=== PATIENT | male | born 1955 | race Caucasian/White ===

== ENCOUNTER 2025-05-16 09:08 | Inpatient (IN) ==
--- NOTE | 2025-04-08 10:34 | PAT Medication Instructions ---
Medication Instructions Date of Service April 08, 2025 Home Medications Medication Instructions Recorded diclofenac sodium 1 % topical gel 2 g topical QID PRN pain, moderate 12/25/24 #100 grams clopidogrel 75 mg tablet 75 mg PO DAILY #90 tabs 02/03/25 divalproex 125 mg capsule,delayed 125 mg PO BID 30 days #60 caps 02/26/25 release sprinkle ergocalciferol (vitamin D2) 1,250 1,250 mcg PO .WEEKLY #12 caps 03/04/25 mcg (50,000 unit) capsule ferrous gluconate 324 mg (37.5 mg 324 mg PO .COMPLEX #30 tabs 03/21/25 iron) tablet pantoprazole 40 mg tablet,delayed See Rx Instructions .Route 04/07/25 release .COMPLEX #90 tabs amitriptyline 100 mg tablet 100 mg PO HS atorvastatin 80 mg tablet 80 mg PO QAM calcium carbonate (Tums) 300 mg PO BID PRN diclofenac sodium 1 % topical gel 2 g topical QID PRN mirtazapine 15 mg tablet 15 mg PO HS [id number] 300 mcg-K 60 mcg-lycop 600 mcg-lutein 300 mcg tablet (Men 50 Plus Multivitamin) 1 tab PO DAILY valsartan 160 mg tablet 160 mg PO QAM vitamin B comp and C no.3 15 mg-10 mg-50 mg-5 mg-300 mg capsule (B Complex Plus Vitamin C) 1 cap PO DAILY clopidogrel 75 mg tablet 75 mg PO DAILY divalproex 125 mg capsule,delayed release sprinkle 125 mg PO BID ergocalciferol (vitamin D2) 1,250 mcg (50,000 unit) capsule 1,250 mcg PO .WEEKLY ferrous gluconate 324 mg (37.5 mg iron) tablet 324 mg PO .COMPLEX aspirin 81 mg capsule 81 mg PO DAILY pantoprazole 40 mg tablet,delayed release See Rx Instructions .Route .COMPLEX Continue as directed pantoprazole 40 mg tablet,delayed release See Rx Instructions .Route .COMPLEX ASK your prescriber and surgeon clopidogrel 75 mg tablet 75 mg PO DAILY aspirin 81 mg capsule 81 mg PO DAILY STOP taking 24 hours before surgery diclofenac sodium 1 % topical gel 2 g topical QID PRN DO NOT take the morning of surgery calcium carbonate (Tums) 300 mg PO BID PRN valsartan 160 mg tablet 160 mg PO QAM vitamin B comp and C no.3 15 mg-10 mg-50 mg-5 mg-300 mg capsule (B Complex Plus Vitamin C) 1 cap PO DAILY [id number] 300 mcg-K 60 mcg-lycop 600 mcg-lutein 300 mcg tablet (Men 50 Plus Multivitamin) 1 tab PO DAILY ergocalciferol (vitamin D2) 1,250 mcg (50,000 unit) capsule 1,250 mcg PO .WEEKLY ferrous gluconate 324 mg (37.5 mg iron) tablet 324 mg PO .COMPLEX Take morning of surgery With a small sip of water, OTHERWISE NOTHING TO EAT OR DRINK AFTER MIDNIGHT: atorvastatin 80 mg tablet 80 mg PO QAM divalproex 125 mg capsule,delayed release sprinkle 125 mg PO BID Take evening before surgery amitriptyline 100 mg tablet 100 mg PO HS calcium carbonate (Tums) 300 mg PO BID PRN(if needed) mirtazapine 15 mg tablet 15 mg PO HS divalproex 125 mg capsule,delayed release sprinkle 125 mg PO BID Other Notes If you have any questions please call us at [phone] or [phone] or [phone] or [phone]
--- NOTE | 2025-04-15 13:56 | Anesthesiology Consultation ---
Date of Service April 15, 2025 Assessment & Plan (1) Encounter for pre-operative examination: - Infectious disease screening: Per assessment on 04/15/25- No known recent infectious disease contacts or current infectious disease symptoms. - Outpatient joint assessment: Pt currently scheduled for inpatient pathway. If surgeon requests review for outpatient joint pathway, patient is not recommended candidate for outpatient joint program from anesthesia standpoint based on available information. - Plavix/ASA instructions: per surgeon/prescriber - Neurology visit (03/13/25): "s/p CVA 2018 with left hemiparesis.. currently is getting PT.. OT, speech therapy was requested.. cont current regimen of HTN control, statin and plavix" - Cardiology workload note (04/15/25): "Continue Aspirin 81 mg daily. May hold Plavix x 7 days leading up to shoulder surgery." - Pending: * Workload message sent to cardiology regarding upcoming surgery- Awaiting upcoming cardio visit ([facility] [place], [place]). * Awaiting upcoming PCP visit ([facility] [place], appt 04/25). Chart Review Chart Review: Patient seen in Pre Admission Testing Teaching & Discussion Pre-Anesthesia Teaching/Discussion Notes: Instructed NPO after midnight before surgery,except medications with 15 cc of water. Medication instructions provided according to the PAT guidelines. History Surgery Operation Date: 05/16/25 09:00 Proposed Procedures p Right Reverse Total Shoulder Arthroplasty - Chris Juárez, Height/Weight Height: 5 ft 6 in Weight: 66.5 kg Allergies Allergy/AdvReac Type Severity Reaction Status Date / Time No Known Allergies Allergy Verified 03/13/25 13:07 Medications Home Medications Medication Instructions Recorded Confirmed Last Taken amitriptyline 100 mg tablet 100 mg PO HS 12/25/24 04/07/25 Unknown atorvastatin 80 mg tablet 80 mg PO QAM 12/25/24 04/07/25 Unknown calcium carbonate (Tums) 300 mg PO BID PRN heart burn 12/25/24 04/07/25 Unknown diclofenac sodium 1 % topical gel 2 g topical QID PRN pain, moderate 12/25/24 04/07/25 Unknown #100 grams mirtazapine 15 mg tablet 15 mg PO HS 12/25/24 04/07/25 Unknown [id number] 300 mcg-K 60 1 tab PO DAILY 12/25/24 04/07/25 Unknown mcg-lycop 600 mcg-lutein 300 mcg tablet (Men 50 Plus Multivitamin) valsartan 160 mg tablet 160 mg PO QAM 12/25/24 04/07/25 Unknown vitamin B comp and C no.3 15 mg-10 1 cap PO DAILY 12/25/24 04/07/25 Unknown mg-50 mg-5 mg-300 mg capsule (B Complex Plus Vitamin C) clopidogrel 75 mg tablet 75 mg PO DAILY #90 tabs 02/03/25 04/07/25 Unknown divalproex 125 mg capsule,delayed 125 mg PO BID 30 days #60 caps 02/26/25 04/07/25 Unknown release sprinkle ergocalciferol (vitamin D2) 1,250 1,250 mcg PO .WEEKLY #12 caps 03/04/25 04/07/25 Unknown mcg (50,000 unit) capsule ferrous gluconate 324 mg (37.5 mg 324 mg PO .COMPLEX #30 tabs 03/21/25 04/07/25 Unknown iron) tablet aspirin 81 mg capsule 81 mg PO DAILY 04/07/25 04/07/25 Unknown pantoprazole 40 mg tablet,delayed See Rx Instructions .Route 04/07/25 04/07/25 Unknown release .COMPLEX #90 tabs Past Medical History Medical History (Updated 04/15/25 @ 15:15 by Maria G Gonzalez) Anemia Chronic Atherogenic dyslipidemia CAD (coronary artery disease) s/p cardiac stents: 2012 (JHOAN to right posterolateral branch) + 2017 (JHOAN to RCA > staged PCI Cx) Chronic lymphocytic leukemia Follows with heme/onc (CCP) Cognitive deficit following cerebrovascular accident (CVA) Dysphagia Chronic, ongoing issue since 2018 CVA Difficulty w/large food Follows with speech therapy GERD (gastroesophageal reflux disease) History of atrial fibrillation Follows with [facility] [place] cardio History of CVA (cerebrovascular accident) 2018 (per cardio records) > left sided hemiparesis affecting left side, uses wheel chair Taking Plavix Follows with [facility] [place] neurology HTN (hypertension) Hx of myocardial infarction Multiple MIs (most recent 2016) Left hemiplegia Exercise / Class Metabolic Activity IV < 2 Limit ADL/Bedbound (Electric wheelchair use) Past Family History Family History Mother Colorectal cancer Diabetes Brother No problems noted. Denies family history of Ovarian cancer Prostate cancer Myocardial infarction Breast cancer Lung cancer Past Surgical History Surgical History History of right hip replacement Hx of cardiac catheterization 2012 (JHOAN to right posterolateral branch) + 2016 (JHOAN to RCA > staged PCI Cx) Hx of colonoscopy Implantable loop recorder present Placed for a. fib, "non-fuctioning" S/P vasectomy S/P wisdom tooth extraction Past Anesthesia History No Hx of Anesthesia Complications and No Family Hx of Anesthesia Complications History of PONV No Hx of PONV and No Hx of Motion Sickness Social History Smoking Status: Former smoker Do You Dip or Chew Tobacco: No Smoking End Date: Quit ~20 years ago Hx Alcohol Use: Yes Alcohol type: wine alcohol intake frequency: holidays/special occasions only Hx Substance Use: No substance use type: does not use Review of Systems Patient denies chest pain, shortness of breath, fever, chills, cough, wheezing, palpitations. Physical Exam Vital Signs BP 109/73 P 91 TEMP 98.5 SP02 95%RA RESP 16 Physical Full cervical extension range of motion. Full TMJ range of motion. TMD > 3.5 finger breaths Mallampati Score II Dentition: upper full dentures Lungs: clear throughout to auscultation Cardiac: regular rate and rhythm, no murmurs noted Spine: normal Carotid arteries: negative bruit Extremities: no LE edema Lab Results Anesthesia Preop Results Results Anesthesia Widget: WBC 13.21 K/ul (4.8-10.8) H 04/15/25 Hgb 11.5 g/dl (14.0-18.0) L 04/15/25 Hct 36.6 % (42.0-52.0) L 04/15/25 Plt 256 K/uL (130-400) 04/15/25 Na 141 mmol/L (136-145) 04/15/25 K 4.0 mmol/L (3.5-5.1) 04/15/25 Cl 105 mmol/L (98-107) 04/15/25 CO2 29 mmol/L (21-32) 04/15/25 BUN 14 mg/dl (6-23) 04/15/25 Creat 1.02 mg/dl (0.6-1.4) 04/15/25 Glucose Level 110 mg/dl (70-99(Fasting)) H 04/15/25 PT 10.5 Seconds (9.0-12.0) 04/15/25 PTT 27 Seconds (21-31) 04/15/25 INR 1.0 (0.9-1.1) 04/15/25 Blood Type O Positive 04/15/25 Antibody Screen NEGATIVE 04/15/25 Testing Laboratory Results *Known hx of CLL- Elevated WBC on preop labs (stable)* Electrocardiogram Date: 01/14/25 Sinus rhythm with sinus arrhythmia at 77 bpm. First-degree AV block. LVH with QRS widening (R in aVL, Tom product, Romhilt-Early). Inferior infarct, age undetermined. Inferior infarct dating back to 02/04/2019 per scanned 10/03/23 ECG tracing tracings scanned into chart. Chest X-Ray Date: 04/15/25 FINDINGS: An electronic device projects over the anterior left chest wall. Coronary arterial stenting. Cardiomegaly. Mild chronic interstitial coarsening. Atherosclerosis of the aorta. No pneumothorax, large pleural effusion, airspace consolidation or overt pulmonary edema. Degenerative changes of the shoulders and spine. IMPRESSION: No acute process. Echocardiogram Date: 10/05/23 EF 35-40%. Severe hypokinesis of mid anterior septal wall. Moderate LVH. Mild MR/AR. Stress Test Date: 10/07/23 Type: nuclear Stress ECG response: Nonspecific STT abnormalities. No evidence of stressinduced ischemia.
--- NOTE | 2025-05-14 12:39 | History & Physical Report ---
Date of Service May 14, 2025 Assessment & Plan (1) Rotator cuff tear arthropathy of right shoulder: We will proceed with a right reverse shoulder arthroplasty. Postoperatively, he will be placed in a sling and kept overnight in the hospital for postop medical management. He plans to have the hospital set up home health for discharge. History of Present Illness Chief Complaint: Cuff tear arthropathy of the right shoulder. Primary Care Provider: Sherwin Hubbard DO Pradeep is a pleasant 69-year-old male who suffered a stroke in 2018. It affected his entire left side of his body. He is mostly wheelchair bound due to the stroke. He uses his right arm a lot. He has developed cuff tear arthropathy of his right shoulder. After failing extensive conservative treatment over the years, he has elected proceed with a right reverse shoulder arthroplasty. Allergies Allergy/AdvReac Type Severity Reaction Status Date / Time No Known Allergies Allergy Verified 04/25/25 14:37 Home Medications Medication Instructions Recorded Confirmed Type atorvastatin 80 mg tablet 80 mg PO QAM 12/25/24 04/25/25 History calcium carbonate (Tums) 300 mg PO BID PRN heart burn 12/25/24 04/25/25 History diclofenac sodium 1 % topical gel 2 g topical QID PRN pain, moderate 12/25/24 04/25/25 Rx #100 grams mirtazapine 15 mg tablet 15 mg PO HS 12/25/24 04/25/25 History bwvaqekg-gm-hnhmj 300 mcg-K 60 1 tab PO DAILY 12/25/24 04/25/25 History mcg-lycop 600 mcg-lutein 300 mcg tablet (Men 50 Plus Multivitamin) valsartan 160 mg tablet 160 mg PO QAM 12/25/24 04/25/25 History vitamin B comp and C no.3 15 mg-10 1 cap PO DAILY 12/25/24 04/25/25 History mg-50 mg-5 mg-300 mg capsule (B Complex Plus Vitamin C) clopidogrel 75 mg tablet 75 mg PO DAILY #90 tabs 02/03/25 04/25/25 Rx divalproex 125 mg capsule,delayed 125 mg PO BID 30 days #60 caps 02/26/25 04/25/25 Rx release sprinkle ergocalciferol (vitamin D2) 1,250 1,250 mcg PO .WEEKLY #12 caps 03/04/25 04/25/25 Rx mcg (50,000 unit) capsule ferrous gluconate 324 mg (37.5 mg 324 mg PO .COMPLEX #30 tabs 03/21/25 04/25/25 Rx iron) tablet aspirin 81 mg capsule 81 mg PO DAILY 04/07/25 04/25/25 History pantoprazole 40 mg tablet,delayed See Rx Instructions .Route 04/07/25 04/25/25 Rx release .COMPLEX #90 tabs amitriptyline 100 mg tablet 100 mg PO HS #90 tabs 05/05/25 Rx Past Med/Surg History Problem List (Updated 05/14/25 @ 12:38 by Chris Juárez DO) Rotator cuff tear arthropathy of right shoulder Stented coronary artery Encounter for pre-operative examination Non-healing skin lesion Actinic keratosis Hemiparesis affecting left side as late effect of stroke Dysphagia Left hemiplegia Small lymphocytic lymphoma Chronic lymphocytic leukemia GERD (gastroesophageal reflux disease) Atherogenic dyslipidemia Benign essential hypertension History of CVA (cerebrovascular accident) Coronary artery disease Vitamin D deficiency Medical History CAD (coronary artery disease) s/p cardiac stents: 2012 (JHOAN to right posterolateral branch) + 2017 (JHOAN to RCA > staged PCI Cx) HTN (hypertension) Atherogenic dyslipidemia Left hemiplegia Cognitive deficit following cerebrovascular accident (CVA) Anemia Chronic History of atrial fibrillation Follows with [facility] cardio Chronic lymphocytic leukemia Follows with heme/onc (CCP) Dysphagia Chronic, ongoing issue since 2018 CVA Difficulty w/large food Follows with speech therapy History of CVA (cerebrovascular accident) 2018 (per cardio records) > left sided hemiparesis affecting left side, uses wheel chair Taking Plavix Follows with [facility] [place] neurology GERD (gastroesophageal reflux disease) Hx of myocardial infarction Multiple MIs (most recent 2016) Surgical History Implantable loop recorder present Placed for a. fib, "non-fuctioning" Hx of colonoscopy Hx of cardiac catheterization 2012 (JHOAN to right posterolateral branch) + 2017 (JHOAN to RCA > staged PCI Cx) History of right hip replacement S/P vasectomy S/P wisdom tooth extraction Family History Mother Colorectal cancer Diabetes Brother No problems noted. Denies family history of Ovarian cancer Prostate cancer Myocardial infarction Breast cancer Lung cancer Social History Smoking Status: Never smoker Tobacco Type: Cigarettes Age Started Using Tobacco: 6; Age Quit Using Tobacco: 49; packs per day: 1; Smoking End Date: Quit ~20 years ago; Second Hand Exposure: Yes (hx); Do You Dip or Chew Tobacco: No; Tobacco Cessation Education Requested by Patient: No Hx Alcohol Use: Yes Alcohol type: wine Alcohol Intake Frequency: Monthly or Less Hx Substance Use: No Preferred Language: Citizen Of [place] Communication Ability: Effective Communication Ability Comment: mild cognitive deficit Visual Impairment: No Limitations Hearing Ability: Hard of Hearing Remote Sensing Technologist Required: No Beliefs That Will Affect Care: None marital status: Current Living Situation: Alone current occupational status: retired Other Information That Helps Us Care for You: No Feels Safe at Home: Yes Safety Concerns: Feels Safe At This Time Childhood Exposure to Second-Hand Smoke: Yes Diet: regular caffeine: Yes during the past year weight has: remained stable Dental Care, Regularly: Yes Physical Activity Frequency: Does not Exercise Seatbelt Use: always Sunscreen Use: No Assistive Devices: Cane and Wheelchair Assistive Devices Comment: uses cane at P.T. Review of Systems All systems reviewed & are unremarkable except as noted in HPI & below. Physical Exam On physical exam of the right shoulder, she he has about 110 degrees of forward elevation 110 degrees of abduction. He has weakness throughout.. Constitutional WD/WN, vitals as above Eyes PERRL, conjunctivae normal, anicteric sclerae ENMT external ear and nose normal, oropharynx normal Neck trachea midline, no thyromegaly Respiratory normal respiratory effort Cardiovascular RRR, no murmur, no edema Gastrointestinal (Abdomen) normal bowel sounds, soft, nontender, no hepatosplenomegaly Psychiatric A+Ox3, euthymic affect Results & Data Results & Data Laboratory Results . Diagnostic Findings X-rays of the right shoulder show superior migration of the humeral head on the glenoid.. PG Care Time/CCT Total # of Minutes Spent Total Time Spent with Patient: Total time spent is greater than 50% in coordination of care (as documented) at patient's floor/unit and/or counseling patient: Coding Level of Care Code None Diagnoses Rotator cuff tear arthropathy of right shoulder M75.101; M12.811
[~2025-05-16 09:08] MED LIST: BUPIVACAINE 0.5 % 5 MG/1 ML PF 10ML VIAL ONE; LIDOCAINE 2% 2 ML VIAL/AMP(20MG/ML) INFIL ONE
[2025-05-16] MEDS: ACETAMINOPHEN 500 MG TAB PO SCH ×2 (09:28→16:34)
[2025-05-16] MEDS: dexAMETHasone**PF** 10 MG/ML VIAL IV SCH (09:28)
[2025-05-16] MEDS: LR 60ML/HR IV SCH (09:29)
[2025-05-16] MEDS: FAMOTIDINE 20 MG TAB PO SCH (09:29)
[2025-05-16] MEDS: GABAPENTIN 300 MG CAP PO SCH (09:33)
[2025-05-16] MEDS: LR 15ML/HR IV SCH (09:45)
[2025-05-16] MEDS ORDERED: PROPOFOL IV EMULSION 10 MG/ML 20 ML VIAL IV ONE ×2 (09:58→09:59)
[2025-05-16] MEDS ORDERED: PHENYLEPHRINE HCL 10 MG/ML VIAL ONE (09:58)
[2025-05-16] MEDS ORDERED: ONDANSETRON INJ 2 MG/ML 2 ML VIAL ONE (09:58)
[2025-05-16] MEDS ORDERED: ROCURONIUM BROMIDE 10 MG/ML 5 ML VIAL IV ONE (09:59)
[2025-05-16] MEDS ORDERED: DEXAMETHASONE SOD INJ 4 MG/ML VIAL ONE (10:02)
--- NOTE | 2025-05-16 10:09 | History & Physical Bridge Note ---
Date of Service May 16, 2025 History & Physical Bridge Note I have examined the patient, reviewed the History & Physical and in the interval since the performance of the History & Physical I have noted the following changes of clinical significance: no changes noted
[2025-05-16] MEDS ORDERED: HYDROmorphone INJ 1 MG/ML SYRINGE IV PRN (10:26)
[2025-05-16] MEDS ORDERED: PROMETHAZINE HCL 6.25 MG in SODIUM CHLORIDE 0.9% 50 ML IV PRN (10:26)
[2025-05-16] MEDS ORDERED: ATROPINE SULFATE 0.1 MG/ML 10ML SYR IV PRN (10:26)
[2025-05-16] MEDS: TRANEXAMIC ACID 1,000 MG **IV Pre-op IV SCH (10:34)
[2025-05-16] MEDS: ROPIV 0.5% 246mg, Ketorolac 30mg, EPINEPHrine 0.5mg in NSS INFIL SCH (11:43)
[2025-05-16] MEDS: ORTHO JOINT ANESTHETIC ONE (11:44)
--- NOTE | 2025-05-16 12:09 | Operative Report ---
PG Post Operative Report Pre & Post Diagnosis Operation Date: 05/16/25 11:00 Pre-Op Diagnosis: Cuff tear arthropathy of the right shoulder with tendinopathy long head of the biceps tendon Post-Op Diagnosis: Cuff tear arthropathy of the right shoulder with tendinopathy long head of the biceps tendon I identified the patient and participated in the time-out.: Yes Procedure Operation Date: 05/16/25 11:00 Actual Procedures p Right Reverse Total Shoulder Arthroplasty(Right) with open biceps tenodesis as a distinct and separate procedure (modifier 59)- Chris Juárez DO Surgeon Chris Juárez DO Hot Stone Setter Carlos Sims PA-C Estimated Blood Loss 150 Findings Consistent with Post-Op Diagnosis Specimens Right humeral head Description of Procedure A CPT code modifier 59: The long head of the biceps tendon was enlarged and inflamed consistent with tendinopathy. A tenodesis was opted. This was a separate and distinct portion of the procedure. For these reasons, a CPT code modifier 59 will be added to this case. Implants used: I used a [employer] Comprehensive reverse total shoulder arthroplasty system with a size 10 press fit micro humeral stem, a +6 offset humeral tray and a +3 retentive humeral bearing, a 25 mm small augment baseplate with a 6.5 mm central screw and superior and inferior locking screws, and a size 36 mm eccentric glenosphere. Pradeep arrived at [facility] for the above procedure. He was seen in the preoperative holding area and the operative extremity was identified and signed. He was given a preoperative antibiotic, TXA, and an interscalene nerve block. He was taken back to the operating room, laid on table in supine position, and put under general anesthesia. He was then put into the beachchair position. The shoulder was then prepped and draped in sterile fashion. A timeout was done and the patient and the operative extremity was properly identified. A deltopectoral approach was used. Dissection was taken down through the fascia and the deltoid was retracted laterally and the conjoined tendon was retracted medially. The anterior shoulder was exposed. The biceps groove was opened up and the biceps tendon was examined extensively. The biceps tendon demonstrated enlargement and inflammatory changes consistent with longstanding inflammation in the context of osteoarthritis and cuff arthropathy. The long head of the biceps tendon was then tenodesed to the upper border of the pectoralis major. This was a separate and distinct portion of the procedure. The subscapularis was then directly released off the lesser tuberosity with a peel technique. The inferior capsule was released and the humeral head was dislocated. A canal finding reamer was sent down the center of the humeral canal. Sequential reaming up to a size 10 reamer was done. Off that reamer, a proximal humeral resection guide was placed. The proximal humerus was resected at 135 of inclination and 25 of retroversion. Osteophytes were then removed and the glenoid was exposed. Time was spent doing a complete capsular and labral release. The glenoid guide was then placed in the inferior aspect of the glenoid. A 3.2 mm Steinmann pin was then placed into the glenoid vault at 10 of inclination. The glenoid baseplate was then reamed. The final size 25 mm small augment baseplate was then impacted in the place. A 6.5 mm central screw was then placed followed by superior and inferior locking screws. A 36 mm eccentric glenosphere was then impacted into place. Surrounding soft tissues were then injected with 100 cc an orthopedic pain control cocktail. The proximal humerus was then exposed. Sequential broaching of the humerus up to a size 10 broach was done. Off that broach a +6 offset and +3 retentive humeral tray was trialed. The shoulder was then reduced, brought through a full range of motion, and felt to be stable. The shoulder was then dislocated and the broach was removed. The final size 10 micro press-fit humeral stem was then impacted into place. A +3 retentive humeral bearing was then snapped onto a +6 offset humeral tray. The humeral tray was then impacted onto the humeral stem. The shoulder was once again reduced, brought through a full range of motion, and felt to be stable. The subscapularis was poor quality and unable to be repaired.. A dilute betadyne lavage was then done for 3 minutes. The joint was then irrigated with normal saline solution. Hemostasis was obtained. The interval was closed with 2-0 Vicryl suture. The skin was then closed with 2-0 Vicryl and Madhu zip line. A Silverlon dressing was placed and the arm was rested in a regular arm sling. He was then extubated and transferred to a hospital bed. He taken to the postanesthesia care unit in stable condition. He tolerated the procedure well. Carlos Sims PA-C, was present for the entire procedure. He was critical for patient positioning, prepping, draping, retraction exposure, wound closure and application of sterile dressing. I attest to the content of the Intraoperative Record and any orders documented therein. Any exceptions are noted below.
[2025-05-16] MEDS ORDERED: SUGAMMADEX SODIUM 200 MG/2 ML VIAL IV ONE (12:14)
[2025-05-16] MEDS ORDERED: PHENYLEPHRINE 100MCG/ML 5ML SYR ONE (12:20)
--- NOTE | 2025-05-16 14:11 | XRay Report ---
XR shoulder RT min 2V routine HISTORY: 69 years-old Male Post shoulder surgery right shoulder arthroplasty COMPARISON: Chest radiograph 04/15/2025 TECHNIQUE: 2 views of the right shoulder FINDINGS: Reverse right shoulder arthroplasty demonstrates satisfactory alignment. Cardiomegaly with loop recor danie device. Expected postoperative soft tissue swelling with deep tissue air. No acute fracture or ma lalignment. IMPRESSION: Satisfactory alignment of the right shoulder arthroplasty. ACT 112: Negative or not required by law. The above report was generated using voice recognition software. It may contain grammatical, syntax o r spelling errors. Electronically signed by: Bc Hernandez M.D. 05/16/2025 2:10 PM
--- NOTE | 2025-05-16 15:14 | Anesthesiology Progress Note ---
Date of Service May 16, 2025 Anesthesia Post Procedure Vital Signs Vital Signs: Temp Pulse Pulse Resp BP BP Pulse Ox 05/16/25 14:50 78 14 115/69 93 05/16/25 14:20 75 18 117/64 95 05/16/25 14:05 74 17 128/76 95 05/16/25 13:50 73 19 121/70 96 05/16/25 13:35 70 17 131/70 96 05/16/25 13:20 36.2 C L 71 16 134/71 96 05/16/25 13:10 75 20 136/73 97 05/16/25 13:00 73 21 144/72 H 100 05/16/25 12:50 71 17 140/69 100 05/16/25 12:40 74 23 146/72 H 100 05/16/25 12:33 36.0 C L 81 12 132/61 99 05/16/25 09:25 36.6 C 78 20 132/85 98 O2 Del Method O2 Flow Rate 05/16/25 14:50 Room Air 05/16/25 14:20 Room Air 05/16/25 14:05 Room Air 05/16/25 13:50 Room Air 05/16/25 13:35 Room Air 05/16/25 13:20 Room Air 05/16/25 13:10 Room Air 05/16/25 13:00 Room Air 05/16/25 12:50 Oxymask 7 05/16/25 12:40 Oxymask 7 05/16/25 12:33 Oxymask 7 05/16/25 09:25 Room Air Transfer of Care Handoff Completed per policy Notes Mental Status: alert / awake / arousable and participated in evaluation Nausea / Vomiting: adequately controlled Pain: adequately controlled Airway Patency, RR, SpO2: stable & adequate BP & HR: stable & adequate Hydration State: stable & adequate Anesthetic Complications: no major complications apparent and Pt Satisfied with anesthetic care
[2025-05-16] MEDS ORDERED: NALOXONE HCL 0.4 MG/1 ML VIAL/CARP IV PRN (15:19)
[2025-05-16] MEDS ORDERED: ONDANSETRON INJ 2 MG/ML 2 ML VIAL IV PRN (15:19)
[2025-05-16] MEDS ORDERED: MAGNESIUM HYDROXIDE SUSP 30 ML UDC PO PRN (15:19)
[2025-05-16] MEDS ORDERED: METOCLOPRAMIDE HCL INJ 5 MG/ML 2 ML VIAL IV PRN (15:19)
[2025-05-16] MEDS: BUPIVACAINE LIPOSOME 1.3% 133 MG/10 ML VIAL ONE (15:53)
[2025-05-16] MEDS: SODIUM CHLORIDE 0.9% 1,000 ML IV SCH (15:56)
[2025-05-16] MEDS: KETOROLAC TROMETHAMINE 15 MG/ML VIAL IV SCH (16:34)
[2025-05-16] MEDS: AMITRIPTYLINE HCL 100 MG TAB PO SCH (20:47)
[2025-05-16] MEDS: SENNA 8.6 MG TAB PO SCH (20:47)
[2025-05-16] MEDS: DOCUSATE SODIUM 100 MG CAP PO SCH (20:47)
[2025-05-16] MEDS: DIVALPROEX SODIUM SPRINKLE/DEL-REL 125 MG CAP PO SCH (20:47)
[2025-05-16] MEDS: MIRTAZAPINE TAB 15 MG TAB PO SCH (22:32)
[2025-05-17] MEDS: VALSARTAN 80 MG TAB PO SCH (08:53)
[2025-05-17] MEDS: ASPIRIN 81 MG ECTAB PO SCH (08:54)
[2025-05-17] MEDS: MULTIVITAMIN TAB PO SCH (08:55)
[2025-05-17] MEDS: CLOPIDOGREL BISULFATE 75 MG TAB PO SCH (08:55)
[2025-05-17] MEDS: ATORVASTATIN 40 MG TAB PO SCH (08:55)
--- NOTE | 2025-05-17 08:56 | Orthopedic Progress Note ---
Date of Service May 17, 2025 Assessment & Plan (1) Status post reverse total replacement of right shoulder: Overall he is doing very well. He is not having much pain in the right shoulder. He will be seen by physical therapy today for ambulation and range of motion exercises. He is orthopedically stable for discharge to home later today. He will follow-up with orthopedics in 2 weeks. Ric Fernández was seen and examined at bedside this morning. Overall is doing very well. He is not having much pain in the right shoulder. He was able to get some sleep last night. He is no complaints.. Review of Systems All systems reviewed & are unremarkable except as noted in HPI & below. Physical Exam On physical exam of the right shoulder, the dressing is clean and dry. He is wearing his sling as instructed. He is neurovascular intact.. Results & Data Results & Data Laboratory Results . Diagnostic Findings Postoperative x-rays of the right shoulder show the prosthesis to be in anatomic alignment without any evidence of fracture, dislocation, or loosening.. PG Care Time/CCT Total # of Minutes Spent Total Time Spent with Patient: Total time spent is greater than 50% in coordination of care (as documented) at patient's floor/unit and/or counseling patient: Coding Level of Care Code 06877 Post Operative Follow-Up Diagnoses Status post reverse total replacement of right shoulder Z96.611
--- NOTE | 2025-05-18 07:53 | Orthopedic Progress Note ---
Date of Service May 18, 2025 Assessment & Plan (1) Status post reverse total replacement of right shoulder: Overall he is doing fairly well. He is not having too much pain in the right shoulder. He will be seen by physical therapy today for ambulation and range of motion exercises. We are awaiting placement at a rehab facility. He plans to go to rehab tomorrow. Ric Fernández was seen and examined at bedside this morning. Overall he is doing fairly well. He is not having too much pain in the right shoulder. He was able to participate with physical therapy. He is awaiting placement to a rehab facility.. Review of Systems All systems reviewed & are unremarkable except as noted in HPI & below. Physical Exam On physical exam of the right shoulder, the dressing is clean and dry. He is neurovascular intact.. Results & Data Results & Data Laboratory Results . Diagnostic Findings . PG Care Time/CCT Total # of Minutes Spent Total Time Spent with Patient: Total time spent is greater than 50% in coordination of care (as documented) at patient's floor/unit and/or counseling patient: Coding Level of Care Code 47559 Post Operative Follow-Up Diagnoses Status post reverse total replacement of right shoulder Z96.611
[2025-05-18] MEDS: HYDROmorphone INJ 0.5 MG/0.5 ML SYR IV PRN (10:03)
--- NOTE | 2025-05-19 07:37 | Orthopedic Progress Note ---
Date of Service May 19, 2025 Assessment & Plan (1) Status post reverse total replacement of right shoulder: * Continue Current Treatment * Disposition: rehab * Daily treatment: Physical Therapy/ Occupational Therapy per protocol * Weight bearing status: NWB RUE, sling * Continue to monitor for ABLA * Pain control * Office/hospital f/u 2 weeks for progress check and staple/suture removal * Plan for discharge today pending rehab placement Subjective . Active Problems: S/p right rTSA POD [age] y/o male s/p right rTSA. Awaiting rehab placement. Doing well overall, pain managed and improved function. Denies fever/chills, chest pain/SOB, nausea/vom iting. Otherwise no complaints. Review of Systems All systems reviewed & are unremarkable except as noted in HPI & below. Physical Exam . * General: Alert and oriented, no acute distress * Constitutional: well-developed, well-nourished. * Respiratory: Normal respiratory effort, no distress * Gastrointestinal: No tenderness to palpation, no rigidity or guarding. * Skin: No rash or lesion. * Neurologic: Grossly normal * Musculoskeletal: Right shoulder surgical dressing CDI, not removed for exam. Otherwise no obvious deformity or overlying skin changes. Diffuse TTP upper arm and shoulder region. Otherwise no specific tenderness of upper arm, elbow, forearm, wrist/hand. AROM shoulder not assessed. AROM elbow, wrist/hand intact. Sensation intact radial/median/ulnar nerve distributions. Brisk capillary refill. Results & Data Results & Data Laboratory Results . Diagnostic Findings . PG Care Time/CCT Total # of Minutes Spent Total Time Spent with Patient: Total time spent is greater than 50% in coordination of care (as documented) at patient's floor/unit and/or counseling patient: Coding Level of Care Code 59148 Post Operative Follow-Up Diagnoses Status post reverse total replacement of right shoulder Z96.611
[2025-05-20 05:39] VITALS: O2SAT 96
[2025-05-20 08:00] VITALS: PULSE 74; RESP 16; TEMP 97.5
--- NOTE | 2025-05-20 08:12 | Orthopedic Progress Note ---
Date of Service May 20, 2025 Assessment & Plan (1) Status post reverse total replacement of right shoulder: * Continue Current Treatment * Disposition: rehab * Daily treatment: Physical Therapy/ Occupational Therapy per protocol * Weight bearing status: NWB RUE, sling * Continue to monitor for ABLA * Pain control * Office/hospital f/u 2 weeks for progress check and staple/suture removal * Plan for discharge today pending rehab placement Subjective Active Problems: S/p right rTSA POD [age] y/o male s/p right rTSA. Awaiting rehab placement. Doing well overall, pain managed and improved function. Denies fever/chills, chest pain/SOB, nausea/vomit ing. Otherwise no complaints. Review of Systems All systems reviewed & are unremarkable except as noted in HPI & below. Physical Exam * General: Alert and oriented, no acute distress * Constitutional: well-developed, well-nourished. * Respiratory: Normal respiratory effort, no distress * Gastrointestinal: No tenderness to palpation, no rigidity or guarding. * Skin: No rash or lesion. * Neurologic: Grossly normal * Musculoskeletal: Right shoulder surgical dressing CDI, not removed for exam. Otherwise no obvious deformity or overlying skin changes. Diffuse TTP upper arm and shoulder region. Otherwise no specific tenderness of upper arm, elbow, forearm, wrist/hand. AROM shoulder not assessed. AROM elbow, wrist/hand intact. Sensation intact radial/median/ulnar nerve distributions. Brisk capillary refill. Results & Data Results & Data Laboratory Results . Diagnostic Findings . PG Care Time/CCT Total # of Minutes Spent Total Time Spent with Patient: Total time spent is greater than 50% in coordination of care (as documented) at patient's floor/unit and/or counseling patient: Coding Level of Care Code 66856 Post Operative Follow-Up Diagnoses Status post reverse total replacement of right shoulder Z96.611
[2025-05-20 11:42] VITALS: BP 111/66
== END 2025-05-20 12:08 | DRG 483 ==
LOC: PACUINP 09:08 → ASU 09:08 → 3E 15:04

== ENCOUNTER 2025-06-02 11:22 | Inpatient (IN) ==
--- NOTE | 2025-06-02 11:56 | Emergency Department Note ---
Impression & Plan Aspiration pneumonia, Pulmonary embolism ED Provider Note Diagnosis: Pulmonary embolism, aspiration pneumonia Disposition: Admission CHIEF COMPLAINT: Lightheadedness HPI: Patient is a 69-year-old male presenting from rehab facility with feeling lightheaded. Patient states he felt woozy today. Patient denies any syncopal episodes. Patient denies any headache or blurred vision. Patient has previous stroke with left-sided residual effects no change in the dose today. Patient states someone checked his heart rate and blood pressure and they were abnormal and he was sent in for further evaluation here. Patient denies any active chest pain or shortness of breath currently. Patient denies any abdominal pain nausea or vomiting currently. Patient found to be tachycardic upon arrival. Patient did have recent right rotator cuff repair 2 to 3 weeks prior. Patient denies any issues with the repair and has not showed any signs of infection at incision site. Patient states today he feels a little weaker than usual. PAST MEDICAL HISTORY: See Below PAST SURGICAL HISTORY: See Below SOCIAL HISTORY: See Below HOME MEDICATIONS: See Below ALLERGIES: See Below VITALS: See Below PHYSICAL EXAMINATION: GENERAL: Well appearing, well nourished, NAD, non-toxic. EYE EXAM: Normal conjunctiva. OROPHARYNX: Moist mucus membranes. Grossly normal dentition. NECK: Supple, LUNGS: Clear to auscultation. Normal chest wall mechanics. HEART: Tachycardia ABDOMEN: Abdomen soft, non-tender, normo-active bowel sounds, no masses, no rebound or guarding BACK: No CVA TTP. SKIN: No rashes and no bruising. UPPER EXTREMITIES: Upper extremities are grossly normal LOWER EXTREMITIES: Grossly normal, no edema. NEURO EXAM: A&O x3,, patient's speech is baseline but does struggle to get words out, patient has left-sided deficits that are baseline PSYCH: Cooperative MEDICAL DECISION MAKING: History obtained from: Patient ER Course: Patient is a 69-year-old male presenting from nursing facility with tachycardia and hide pretension. Patient had recent surgery for rotator cuff repair to the right shoulder. Patient has baseline deficits from a previous stroke to the left side of his body. Patient states felt weak today. Patient found to have tachycardia on EKG without signs of ischemia. Patient found to have an elevated D-dimer and a CTA of the chest was ordered to rule out pulmonary embolism. Patient on CT scan found to have aspiration pneumonia started on Zosyn after discussion with clinical pharmacist. Patient also found to have pulmonary embolism and started on weight-based heparin. Patient's case discussed with hospital service. Patient notified of the symptoms as well as his daughter at bedside and they agree with treatment plan. Labs (independently interpreted) are significant for: D-dimer above 4000 Imaging results (independently interpreted): Chest x-ray pneumonia EKG interpretation (independently interpreted): Sinus tachycardia no ST segment elevation or depression Medications given: Normal saline, Zosyn, heparin Consultants: Clinical pharmacist, hospitalist Triage Nursing notes reviewed and agree them. 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 Stented coronary artery Non-healing skin lesion Actinic keratosis Hemiparesis affecting left side as late effect of stroke Dysphagia Left hemiplegia Small lymphocytic lymphoma Chronic lymphocytic leukemia GERD (gastroesophageal reflux disease) Atherogenic dyslipidemia Benign essential hypertension History of CVA (cerebrovascular accident) Coronary artery disease Vitamin D deficiency Medical History CAD (coronary artery disease) s/p cardiac stents: 2012 (JHOAN to right posterolateral branch) + 2017 (JHOAN to RCA > staged PCI Cx) HTN (hypertension) Atherogenic dyslipidemia Left hemiplegia Cognitive deficit following cerebrovascular accident (CVA) Anemia Chronic History of atrial fibrillation Follows with [facility] cardio Chronic lymphocytic leukemia Follows with heme/onc ([facility]) Dysphagia Chronic, ongoing issue since 2018 CVA Difficulty w/large food Follows with speech therapy History of CVA (cerebrovascular accident) 2018 (per cardio records) > left sided hemiparesis affecting left side, uses wheel chair Taking Plavix Follows with [facility] neurology GERD (gastroesophageal reflux disease) Hx of myocardial infarction Multiple MIs (most recent 2016) Surgical History Implantable loop recorder present Placed for a. fib, "non-fuctioning" Hx of colonoscopy Hx of cardiac catheterization 2012 (JHOAN to right posterolateral branch) + 2017 (JHOAN to RCA > staged PCI Cx) History of right hip replacement S/P vasectomy S/P wisdom tooth extraction Family History Mother Colorectal cancer Diabetes Brother No problems noted. Denies family history of Ovarian cancer Prostate cancer Myocardial infarction Breast cancer Lung cancer Social History Smoking Status: Former smoker Tobacco Type: Cigarettes Age Started Using Tobacco: 6; Age Quit Using Tobacco: 49; packs per day: 1; Second Hand Exposure: Yes (hx); Do You Dip or Chew Tobacco: No; Hx Alcohol Use: Yes Alcohol type: wine Alcohol Intake Frequency: Monthly or Less Hx Substance Use: No Preferred Language: Kyrgyz Communication Ability: Effective Communication Ability Comment: mild cognitive deficit Visual Impairment: No Limitations Hearing Ability: Hard of Hearing Hot Dog Vender Required: No Beliefs That Will Affect Care: None marital status: Current Living Situation: Alone current occupational status: retired Feels Safe at Home: Yes Childhood Exposure to Second-Hand Smoke: Yes Diet: regular caffeine: Yes during the past year weight has: remained stable Dental Care, Regularly: Yes Physical Activity Frequency: Does not Exercise Seatbelt Use: always Sunscreen Use: No Assistive Devices: Scooter/Electric Scooter and Walker Allergies Allergies Allergy/AdvReac Type Severity Reaction Status Date / Time No Known Allergies Allergy Verified 05/16/25 09:37 Home Meds Home Medications Medication Instructions Recorded Confirmed atorvastatin 80 mg tablet 80 mg PO QAM 12/25/24 05/16/25 calcium carbonate (Tums) 300 mg PO BID PRN heart burn 12/25/24 05/16/25 mirtazapine 15 mg tablet 15 mg PO HS 12/25/24 05/16/25 [id number] 300 mcg-K 60 1 tab PO DAILY 12/25/24 05/16/25 mcg-lycop 600 mcg-lutein 300 mcg tablet (Men 50 Plus Multivitamin) valsartan 160 mg tablet 160 mg PO QAM 12/25/24 05/16/25 vitamin B comp and C no.3 15 mg-10 1 cap PO DAILY 12/25/24 05/16/25 mg-50 mg-5 mg-300 mg capsule (B Complex Plus Vitamin C) aspirin 81 mg capsule 81 mg PO DAILY 04/07/25 05/16/25 Previous Rx's Medication Instructions Recorded diclofenac sodium 1 % topical gel 2 g topical QID PRN pain, moderate 12/25/24 #100 grams clopidogrel 75 mg tablet 75 mg PO DAILY #90 tabs 02/03/25 divalproex 125 mg capsule,delayed 125 mg PO BID 30 days #60 caps 02/26/25 release sprinkle ergocalciferol (vitamin D2) 1,250 1,250 mcg PO .WEEKLY #12 caps 03/04/25 mcg (50,000 unit) capsule ferrous gluconate 324 mg (37.5 mg 324 mg PO .COMPLEX #30 tabs 03/21/25 iron) tablet pantoprazole 40 mg tablet,delayed See Rx Instructions .Route 04/07/25 release .COMPLEX #90 tabs amitriptyline 100 mg tablet 100 mg PO HS #90 tabs 05/05/25 oxycodone 5 mg tablet 5 mg PO Q6H PRN pain #30 tabs 05/17/25 Results & Data (ED) Vital Signs Vital Signs - 24 hr 06/02/25 11:14 06/02/25 11:31 06/02/25 11:42 Temperature 37.0 C Temperature Source Oral Pulse Rate 120 H 114 H Pulse Rate [Right Finger] Pulse Rate from SpO2 Sensor 114 H Respiratory Rate 32 H 28 H Respiratory Effort / Characteristics Non-Labored Spontaneous Blood Pressure 159/116 H Blood Pressure [Right Arm] Blood Pressure Mean 130 Blood Pressure Mean [Right Arm] Pulse Oximetry 94 94 Oxygen Delivery Method Room Air Room Air Sepsis Recent Fever Within 48 Hours No Sepsis New/Unexplained Change in Mental Status N/A Sepsis Action Taken by Nursing Physician Notified 06/02/25 11:47 06/02/25 12:00 06/02/25 12:00 Temperature Temperature Source Pulse Rate 112 H 113 H Pulse Rate [Right Finger] Pulse Rate from SpO2 Sensor 114 H Respiratory Rate 33 H Respiratory Effort / Characteristics Blood Pressure 131/89 Blood Pressure [Right Arm] Blood Pressure Mean 101 Blood Pressure Mean [Right Arm] Pulse Oximetry 98 94 Oxygen Delivery Method Sepsis Recent Fever Within 48 Hours Sepsis New/Unexplained Change in Mental Status Sepsis Action Taken by Nursing 06/02/25 12:00 06/02/25 12:15 06/02/25 12:15 Temperature Temperature Source Pulse Rate 112 H Pulse Rate [Right Finger] Pulse Rate from SpO2 Sensor 111 H Respiratory Rate 21 Respiratory Effort / Characteristics Blood Pressure 131/89 127/91 Blood Pressure [Right Arm] Blood Pressure Mean 101 106 Blood Pressure Mean [Right Arm] Pulse Oximetry 94 Oxygen Delivery Method Sepsis Recent Fever Within 48 Hours Sepsis New/Unexplained Change in Mental Status Sepsis Action Taken by Nursing 06/02/25 12:16 06/02/25 12:27 06/02/25 12:30 Temperature Temperature Source Pulse Rate 114 H 111 H 109 H Pulse Rate [Right Finger] Pulse Rate from SpO2 Sensor 111 H 110 H Respiratory Rate 30 H 18 Respiratory Effort / Characteristics Blood Pressure Blood Pressure [Right Arm] Blood Pressure Mean Blood Pressure Mean [Right Arm] Pulse Oximetry 94 94 Oxygen Delivery Method Sepsis Recent Fever Within 48 Hours Sepsis New/Unexplained Change in Mental Status Sepsis Action Taken by Nursing 06/02/25 12:30 06/02/25 12:54 06/02/25 12:57 Temperature Temperature Source Pulse Rate 106 H 105 H Pulse Rate [Right Finger] Pulse Rate from SpO2 Sensor 105 H 106 H Respiratory Rate 24 24 Respiratory Effort / Characteristics Blood Pressure 129/86 Blood Pressure [Right Arm] Blood Pressure Mean 98 Blood Pressure Mean [Right Arm] Pulse Oximetry 95 96 Oxygen Delivery Method Sepsis Recent Fever Within 48 Hours Sepsis New/Unexplained Change in Mental Status Sepsis Action Taken by Nursing 06/02/25 13:00 06/02/25 13:14 06/02/25 15:06 Temperature Temperature Source Pulse Rate 101 H Pulse Rate [Right Finger] 103 H Pulse Rate from SpO2 Sensor 100 H Respiratory Rate 16 21 Respiratory Effort / Characteristics Blood Pressure 149/94 H 115/69 Blood Pressure [Right Arm] 149/94 H Blood Pressure Mean 112 84 Blood Pressure Mean [Right Arm] 112 Pulse Oximetry 94 96 Oxygen Delivery Method Room Air Sepsis Recent Fever Within 48 Hours Sepsis New/Unexplained Change in Mental Status Sepsis Action Taken by Nursing Laboratory Data 06/02/25 12:02 06/02/25 12:02 Lab Results 06/02/25 06/02/25 Range/Units 12:02 13:08 WBC 15.30 H (4.8-10.8) K/ul RBC 3.87 L (4.70-6.10) M/uL Hgb 11.5 L (14.0-18.0) g/dl Hct 34.8 L (42.0-52.0) % MCV 89.9 (80.0-100.0) fL MCH 29.7 (25.0-34.0) pg MCHC 33.0 (32.0-36.0) g/dL RDW Std Deviation 55.7 H (36.4-46.3) fL RDW Coeff of Jamaal 16.8 H (11.5-14.5) % Plt Count 365 (130-400) K/uL MPV 10.0 (9.4-12.4) fL Immature Gran % (Auto) 0.3 % Neut % (Auto) 50.0 % Lymph % (Auto) 45.2 % [place] % (Auto) 4.2 % Eos % (Auto) 0.1 % Baso % (Auto) 0.2 % Neut # (Auto) 7.65 H (1.40-6.50) K/uL Lymph # (Auto) 6.92 H (1.20-3.40) K/uL [place] # (Auto) 0.65 H (0.11-0.59) K/uL Eos # (Auto) 0.01 (0.00-0.50) K/uL Baso # (Auto) 0.03 (0.00-0.20) K/uL Immature Gran # (Auto) 0.04 (0.01-0.20) K/uL Smudge Cells Present Polychromasia 1+ Ovalocytes 1+ Acanthocytes (Spur) 1+ D-Dimer 4290 H* (0-500) ug/L FEU Sodium 138 (136-145) mmol/L Potassium 4.2 (3.5-5.1) mmol/L Chloride 105 (98-107) mmol/L Carbon Dioxide 26 (21-32) mmol/L Anion Gap 7 (3-11) BUN 17 (6-23) mg/dl Creatinine 0.83 (0.6-1.4) mg/dl Est Cr Clr Drug Dosing 73.3 ml/min eGFR 94.15 BUN/Creatinine Ratio 20.5 H (10-20) Glucose 118 H (70-99(Fasting)) mg/dl Lactate 1.3 (0.4-2.0) mmol/L Calcium 8.7 (8.6-10.3) mg/dl Total Bilirubin 0.5 (0.2-1.0) mg/dl AST 18 (13-39) U/L ALT 34 (7-52) U/L Alkaline Phosphatase 148 H (34-104) U/L Troponin I High Sens 4.6 (0-20) pg/ml Total Protein 6.4 (6.0-8.3) gm/dl Albumin 3.2 L (3.4-5.0) gm/dl Globulin 3.2 (2.5-4.0) gm/dl Albumin/Globulin Ratio 1.0 (0.9-2) Urine Color Dark Yellow Urine Appearance Clear (Clear) Urine pH 8.0 H (4.5-7.5) Ur Specific [place] 1.012 (1.000-1.030) Urine Protein Negative (Negative) Urine Glucose (UA) Negative (Negative) Urine Ketones Trace H (Negative) Urine Blood 2+ H (Negative) Urine Nitrite Negative (Negative) Urine Bilirubin Negative (Negative) Urine Urobilinogen Negative (Negative) Ur Leukocyte Esterase Negative (Negative) Urine WBC (Auto) 0-5 (0-5) /hpf Urine RBC (Auto) >20 H (0-2) /hpf U Hyaline Cast (Auto) 0-2 (0-2) /lpf U Epithel Cells (Auto) 0-2 (0-2) /hpf Urine Bacteria (Auto) None Seen (None Seen) Urine Comment Administered Medications Heparin Sodium/Dextrose (Heparin 94858 Unit/500 Ml D5w) 25,000 units in 500 mls @ 23 mls/hr IV .[id number] [facility]; Protocol Stop: 07/02/25 14:14 Last Admin: 06/02/25 14:25 Dose: 1,150 units/hr, 23 mls/hr Documented By: WOLF Co-signed By: lizzy Discontinued Medications Heparin Sodium (Porcine) (Heparin Sod (Porcine) 1000 Unit/Ml) 1 units IV NOW ONE Stop: 06/02/25 14:13 Last Admin: 06/02/25 14:25 Dose: 5,000 units Documented By: WOLF Co-signed By: lizzy Heparin Sodium/Dextrose (Heparin Iv Adult Wt-Based Standard W/ Initial Bolus Protocol) 1 each IV NOW STA; Protocol Stop: 06/02/25 13:58 Last Admin: 06/02/25 14:28 Dose: Not Given Documented By: WOLF Sodium Chloride (Nss) 1,000 mls @ 999 mls/hr IV .Q1H1M RICHARD Stop: 06/02/25 13:00 Last Infusion: 06/02/25 13:17 Dose: Infused Documented By: lizzy Admin: 06/02/25 12:23 Dose: 999 mls/hr Documented By: WOLF Piperacillin Sod/Tazobactam Sod (Zosyn) 4.5 gm in 100 mls @ 200 mls/hr IV NOW ONE; Protocol Stop: 06/02/25 14:29 Last Admin: 06/02/25 14:53 Dose: 200 mls/hr Documented By: lizzy Ioversol (Optiray 320 125ml) 115 ml IV ONCE ONE Stop: 06/02/25 13:14 Last Admin: 06/02/25 13:13 Dose: 115 ml Documented By: CARL Imaging Data Radiologist's Impression: Chest X-Ray 06/02/25 11:47 XR chest 1V portable HISTORY: 69 years-old Male near syncope COMPARISON: 04/15/2025 TECHNIQUE: AP view the chest FINDINGS: Cardiac silhouette is enlarged. An electronic device projects over the left heart border. No pneumothorax, pleural effusion or airspace consolidation. Chronic interstitial coarse the lungs. Reverse right shoulder arthroplasty. Degenerative changes of the spine and left shoulder. IMPRESSION: No acute process. ACT 112: Negative or not required by law. The above report was generated using voice recognition software. It may contain grammatical, syntax or spelling errors. Electronically signed by: Bc Hernandez M.D. 06/02/2025 12:08 PM Chest CTA 06/02/25 12:50 CT ANGIOGRAM OF THE CHEST CLINICAL HISTORY: Tachycardia and elevated d-dimer. Evaluate for pulmonary embolus. COMPARISON STUDY: Chest CT March 25, 2025. TECHNIQUE: Following the IV administration of 115 cc of Optiray 320, CT angiogram of the chest was performed from the upper abdomen to the thoracic inlet utilizing the pulmonary embolus protocol. Images are reviewed in the axial, sagittal, and coronal planes. 3-D MIPS images are created and assessed. IV contrast was administered without complication. A dose lowering technique was utilized adhering to the principles of ALARA. CT DOSE: 795.96 mGy.cm FINDINGS: There is a segmental pulmonary embolus within the right middle lobe on image 102 of 201. No definite additional pulmonary emboli are identified although this exam is significantly compromised by respiratory motion. The heart is moderately enlarged. Extensive coronary artery calcification is present. There are no enlarged axillary, mediastinal or hilar lymph nodes. A small hiatal hernia is present. The esophagus is fluid-filled and moderately dilated. Lungs are suboptimally assessed due to respiratory motion. There are dependent ground glass opacities within the lower lobes. There are additional scattered mild alveolar opacities within the upper lobes. Visualized portions of the upper abdomen are unremarkable. IMPRESSION: 1. Segmental pulmonary embolus within the right middle lobe. No definite additional pulmonary emboli although exam significantly compromised by respiratory motion. 2. Scattered groundglass opacities within lungs. These favor an infectious process. Aspiration pneumonitis is within the differential given a fluid-filled moderately distended esophagus. 3. Moderate cardiomegaly. Possible mild interstitial pulmonary edema. Extensive coronary artery calcification. ACT 112: Negative or not required by law. Electronically signed by: Maurice Sanchez M.D. 06/02/2025 1:37 PM Discharge Plan Visit Data Chief Complaint: Dizziness ED Provider: Jose Rogel Discharge Problem: Aspiration pneumonia, Pulmonary embolism Condition: Serious Forms Stand Alone Forms: [facility] [employer] Prescriptions Prescriptions: No Action clopidogrel 75 mg tablet 75 mg PO DAILY Qty: 90 3RF ferrous gluconate 324 mg (37.5 mg iron) tablet 324 mg PO .COMPLEX Qty: 30 3RF Rx Instructions: takes 3 times a week pantoprazole 40 mg tablet,delayed release (DR/EC) See Rx Instructions .ROUTE .COMPLEX Qty: 90 3RF Dose Instruction: TAKE 1 TABLET BY MOUTH 1/2 TO 1 HOUR BEFORE MORNING MEAL DAILY Rx Instructions: TAKE 1 TABLET BY MOUTH 1/2 TO 1 HOUR BEFORE MORNING MEAL DAILY amitriptyline 100 mg tablet 100 mg PO HS Qty: 90 5RF ergocalciferol (vitamin D2) 1,250 mcg (50,000 unit) capsule 1,250 mcg PO .WEEKLY Qty: 12 3RF divalproex 125 mg capsule, delayed rel sprinkle 125 mg PO BID 30 Days Qty: 60 3RF atorvastatin 80 mg tablet 80 mg PO QAM valsartan 160 mg tablet 160 mg PO QAM mirtazapine 15 mg tablet 15 mg PO HS Tums 300 mg (750 mg) tablet,chewable 300 mg PO BID PRN (Reason: heart burn ) B Complex Plus Vitamin C [id number] mg capsule 1 cap PO DAILY Rx Instructions: give with food (meal/snack) Men 50 Plus Multivitamin [id number] mcg tablet 1 tab PO DAILY diclofenac sodium 1 % gel 2 g topical QID PRN (Reason: pain, moderate) Qty: 100 2RF aspirin 81 mg Capsule 81 mg PO DAILY oxycodone 5 mg tablet 5 mg PO Q6H PRN (Reason: pain) Qty: 30 0RF Referrals Referrals: Santos Ríos DO [Primary Care Provider] -
--- NOTE | 2025-06-02 12:10 | XRay Report ---
XR chest 1V portable HISTORY: 69 years-old Male near syncope COMPARISON: 04/15/2025 TECHNIQUE: AP view the chest FINDINGS: Cardiac silhouette is enlarged. An electronic device projects over the left heart border. No pneumoth orax, pleural effusion or airspace consolidation. Chronic interstitial coarse the lungs. Reverse righ t shoulder arthroplasty. Degenerative changes of the spine and left shoulder. IMPRESSION: No acute process. ACT 112: Negative or not required by law. The above report was generated using voice recognition software. It may contain grammatical, syntax o r spelling errors. Electronically signed by: Bc Hernandez M.D. 06/02/2025 12:08 PM
[2025-06-02 12:17] LABS: Hematocrit (blood only) 34.8 % (42.0-52.0); Hemoglobin 11.5 g/dl (14.0-18.0); Mean Corpuscular Hemoglobin 29.7 pg (25.0-34.0); Mean Corpuscular Volume 89.9 fL (80.0-100.0); Platelet Count 365 K/uL (130-400); RDW Standard Deviation 55.7 fL (36.4-46.3); Red Blood Count 3.87 M/uL (4.70-6.10); White Blood Count 15.30 K/ul (4.8-10.8)
[2025-06-02] MEDS: SODIUM CHLORIDE 0.9% 1,000 ML IV SCH (12:23)
[2025-06-02 12:37] LABS: Alanine Aminotransferase 34.0 U/L (7-52); Albumin Globulin Ratio 1.0 (0.9-2); Alkaline Phosphatase 148.0 U/L (34-104); Anion Gap 7.0 (3-11); Bilirubin,Total 0.5 mg/dl (0.2-1.0); Blood Urea Nitrogen 17.0 mg/dl (6-23); Calcium 8.7 mg/dl (8.6-10.3); Carbon Dioxide 26.0 mmol/L (21-32); Chloride 105.0 mmol/L (98-107); Creatinine Clr Calc Pharmacy 73.3 ml/min; Globulin 3.2 gm/dl (2.5-4.0); Glucose 118.0 mg/dl (70-99(Fasting)); Potassium 4.2 mmol/L (3.5-5.1); Sodium 138.0 mmol/L (136-145); Total Protein 6.4 gm/dl (6.0-8.3)
[2025-06-02] MEDS: OPTIRAY 320 125ml IV ONE (13:13)
[2025-06-02 13:36] LABS: Appearance Urine Clear (Clear); Bacteria Urine Automated None Seen (None Seen); Cast Urine Automated 0-2 /lpf (0-2); Epithelial Cell Urine Auto 0-2 /hpf (0-2); Glucose Urine UA Negative (Negative); RBC Urine Automated >20 /hpf (0-2); WBC Urine Automated 0-5 /hpf (0-5)
--- NOTE | 2025-06-02 13:38 | CT Scan Report ---
CT ANGIOGRAM OF THE CHEST CLINICAL HISTORY: Tachycardia and elevated d-dimer. Evaluate for pulmonary embolus. COMPARISON STUDY: Chest CT March 25, 2025. TECHNIQUE: Following the IV administration of 115 cc of Optiray 320, CT angiogram of the chest was pe rformed from the upper abdomen to the thoracic inlet utilizing the pulmonary embolus protocol. Images are reviewed in the axial, sagittal, and coronal planes. 3-D MIPS images are created and assessed. I V contrast was administered without complication. A dose lowering technique was utilized adhering to the principles of ALARA. CT DOSE: 795.96 mGy.cm FINDINGS: There is a segmental pulmonary embolus within the right middle lobe on image 102 of 201. No definite additional pulmonary emboli are identified although this exam is significantly compromised by respiratory motion. The heart is moderately enlarged. Extensive coronary artery calcification is p resent. There are no enlarged axillary, mediastinal or hilar lymph nodes. A small hiatal hernia is pr esent. The esophagus is fluid-filled and moderately dilated. Lungs are suboptimally assessed due to r espiratory motion. There are dependent ground glass opacities within the lower lobes. There are addit ional scattered mild alveolar opacities within the upper lobes. Visualized portions of the upper abdo men are unremarkable. IMPRESSION: 1. Segmental pulmonary embolus within the right middle lobe. No definite additional pulmonary emboli although exam significantly compromised by respiratory motion. 2. Scattered groundglass opacities within lungs. These favor an infectious process. Aspiration pneumo nitis is within the differential given a fluid-filled moderately distended esophagus. 3. Moderate cardiomegaly. Possible mild interstitial pulmonary edema. Extensive coronary artery calci fication. ACT 112: Negative or not required by law. Electronically signed by: Maurice Sanchez M.D. 06/02/2025 1:37 PM
[2025-06-02 13:42] LABS: Acanthocytes 1+; Immature Granulocytes # (auto) 0.04 K/uL (0.01-0.20); Immature Granulocytes % (auto) 0.3 %; Ovalocytes 1+; Polychromasia 1+; Smudge Cells Present
[2025-06-02] MEDS: HEPARIN 25000 UNIT/500 ML D5W 25,000 UNITS/500 ML BAG IV SCH (14:25)
[2025-06-02] MEDS: HEPARIN SOD (PORCINE) 1000 UNIT/ML IV ONE (14:25)
[2025-06-02] MEDS: Heparin IV Adult Wt-Based Standard w/ INITIAL Bolus Protocol IV STA (14:28)
[2025-06-02] MEDS: PIPERACILLIN/TAZOBACTAM 4.5 GM/100 ML BAG IV ONE (14:53)
--- NOTE | 2025-06-02 15:01 | History & Physical Report ---
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 pt's son and daughter were at beside during this convo History of Present Illness Primary Care Provider: Santos Ríos, DO 69 yo M with PMHx of HTN, HLD, stroke (2018) with residual left hemiparesis, CAD c/b multiple MIs s/p cardiac stents, GERD, BPH, anxiety / depression, CLL recent right shoulder rotator cuff surgery was sent to ED from [facility] for the evaluation of low blood pressure and high heart rate. He also noted that he felt lightheaded when he woke up in the morning. He denied chest pain, palpitations, dyspnea, blurry vision. Currently he does feel better. From swallowing / GI standpoint, he has has choking episodes if he eats too fast or takes larger bites. He has right sided oropharyngeal weakness. He denied fe elings of food or liquid getting stuck in the chest. ED workup revealed d-dimer of 4290, prompting CTA chest, which revealed RML segmental pulmonary embolus. Aspiration pneumonitis in the setting of fluid- filled moderately distended esophagus. Allergies Allergy/AdvReac Type Severity Reaction Status Date / Time No Known Allergies Allergy Verified 06/02/25 17:04 Home Medications Medication Instructions Recorded Confirmed Type atorvastatin 80 mg tablet 80 mg PO QPM 12/25/24 06/02/25 History calcium carbonate (Tums) 300 mg PO BID PRN Dyspepsia 12/25/24 06/02/25 History mirtazapine 15 mg tablet 15 mg PO HS 12/25/24 06/02/25 History [id number]-ub-[id number] 300 mcg-K 60 1 tab PO QAM 12/25/24 06/02/25 History mcg-lycop 600 mcg-lutein 300 mcg tablet (Men 50 Plus Multivitamin) valsartan 160 mg tablet 160 mg PO QAM 12/25/24 06/02/25 History vitamin B comp and C no.3 15 mg-10 1 cap PO QAM 12/25/24 06/02/25 History mg-50 mg-5 mg-300 mg capsule (B Complex Plus Vitamin C) amitriptyline 100 mg tablet 100 mg PO HS #90 tabs 05/05/25 06/02/25 Rx oxycodone 5 mg tablet 5 mg PO Q6H PRN pain #30 tabs 05/17/25 06/02/25 Rx acetaminophen 325 mg tablet 650 mg PO Q6H PRN Fever/Pain 06/02/25 06/02/25 History (Tylenol) aspirin 81 mg tablet,delayed 81 mg PO QAM 06/02/25 06/02/25 History release bisacodyl 10 mg rectal suppository 10 mg [place] DAILY PRN Constipation 06/02/25 06/02/25 History (Dulcolax (bisacodyl)) clopidogrel 75 mg tablet 75 mg PO QAM 06/02/25 06/02/25 History diclofenac sodium 1 % topical gel 2 g topical Q6H PRN Joint pain 06/02/25 06/02/25 History divalproex 125 mg tablet,delayed 125 mg PO BID 06/02/25 06/02/25 History release ergocalciferol (vitamin D2) 1,250 1,250 mcg PO WK 06/02/25 06/02/25 History mcg (50,000 unit) capsule ferrous gluconate 324 mg (38 mg 324 mg PO 3XWK 06/02/25 06/02/25 History iron) tablet magnesium hydroxide 400 mg/5 mL 2,400 mg PO DAILY PRN Constipation 06/02/25 06/02/25 History oral suspension (Milk of Magnesia) pantoprazole 40 mg tablet,delayed 40 mg PO DAILYBB 06/02/25 06/02/25 History release sodium phosphates 19 gram-7 118 ml [place] DAILY PRN Constipation 06/02/25 06/02/25 History gram/118 mL enema (Fleet Enema) tamsulosin 0.4 mg capsule (Flomax) 0.4 mg PO HS 06/02/25 06/02/25 History Past Med/Surg History Problem List (Updated 06/02/25 @ 15:16 by Jose Rogel DO) Pulmonary embolism (Acute) Aspiration pneumonia (Acute) 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 Stented coronary artery Non-healing skin lesion Actinic keratosis Hemiparesis affecting left side as late effect of stroke Dysphagia Left hemiplegia Small lymphocytic lymphoma Chronic lymphocytic leukemia GERD (gastroesophageal reflux disease) Atherogenic dyslipidemia Benign essential hypertension History of CVA (cerebrovascular accident) Coronary artery disease Vitamin D deficiency Medical History CAD (coronary artery disease) s/p cardiac stents: 2012 (JHOAN to right posterolateral branch) + 2017 (JHOAN to RCA > staged PCI Cx) HTN (hypertension) Atherogenic dyslipidemia Left hemiplegia Cognitive deficit following cerebrovascular accident (CVA) Anemia Chronic History of atrial fibrillation Follows with [facility] cardio Chronic lymphocytic leukemia Follows with heme/onc (CCP) Dysphagia Chronic, ongoing issue since 2018 CVA Difficulty w/large food Follows with speech therapy History of CVA (cerebrovascular accident) 2018 (per cardio records) > left sided hemiparesis affecting left side, uses wheel chair Taking Plavix [facility] neurolog[facility] GERD (gastroesophageal reflux disease) Hx of myocardial infarction Multiple MIs (most recent 2016) Surgical History Implantable loop recorder present Placed for a. fib, "non-fuctioning" Hx of colonoscopy Hx of cardiac catheterization 2012 (JHOAN to right posterolateral branch) + 2017 (JHOAN to RCA > staged PCI Cx) History of right hip replacement S/P vasectomy S/P wisdom tooth extraction Family History Mother Colorectal cancer Diabetes Brother No problems noted. Denies family history of Ovarian cancer Prostate cancer Myocardial infarction Breast cancer Lung cancer Social History Smoking Status: Former smoker Age Started Using Tobacco: 6; Age Quit Using Tobacco: 49; packs per day: 1; Second Hand Exposure: Yes (hx); Do You Dip or Chew Tobacco: No; Hx Alcohol Use: No Hx Substance Use: No Preferred Language: Fijian Communication Ability: Effective Communication Ability Comment: mild cognitive deficit Visual Impairment: No Limitations Hearing Ability: Hard of Hearing Computer Tech Required: No Beliefs That Will Affect Care: None marital status: Current Living Situation: Alone current occupational status: retired Feels Safe at Home: Yes Childhood Exposure to Second-Hand Smoke: Yes Diet: regular caffeine: Yes during the past year weight has: remained stable Dental Care, Regularly: Yes Physical Activity Frequency: Does not Exercise Seatbelt Use: always Sunscreen Use: No Assistive Devices: Glasses, Scooter/Electric Scooter, Walker and Other Review of Systems Review of Systems: Comprehensive ROS completed and is otherwise negative. Physical Exam Physical Exam: Gen: no acute distress, lying in bed comfortable, speaks very fast HEENT: NC/AT, MMM Lungs: nonlabored breathing, coarse breath sounds at the lower bases CVS: s1s2nl, tachycardic Abd: nl bowel sounds, soft, NT / ND : + rodriguez Ext: no edema Neuro: AAOx3, pt not able to move left side though sensation is intact Psych: pleasant, calm, cooperative Results & Data Results & Data Vital Signs (Past 12 Hours) Vital Signs Temp Pulse Pulse Resp BP BP Pulse Ox 06/02/25 13:14 103 H 16 149/94 H 94 06/02/25 13:00 149/94 H 06/02/25 12:57 105 H 24 96 06/02/25 12:54 106 H 24 95 06/02/25 12:30 129/86 06/02/25 12:30 109 H 18 94 06/02/25 12:27 111 H 30 H 94 06/02/25 12:16 114 H 06/02/25 12:15 127/91 06/02/25 12:15 112 H 21 94 06/02/25 12:00 131/89 06/02/25 12:00 131/89 06/02/25 12:00 113 H 33 H 94 06/02/25 11:47 112 H 98 06/02/25 11:42 114 H 28 H 94 06/02/25 11:31 37.0 C 120 H 32 H 159/116 H 94 06/02/25 11:14 O2 Del Method 06/02/25 13:14 Room Air 06/02/25 13:00 06/02/25 12:57 06/02/25 12:54 06/02/25 12:30 06/02/25 12:30 06/02/25 12:27 06/02/25 12:16 06/02/25 12:15 06/02/25 12:15 06/02/25 12:00 06/02/25 12:00 06/02/25 12:00 06/02/25 11:47 06/02/25 11:42 06/02/25 11:31 Room Air 06/02/25 11:14 Room Air Code Status & VTE Plan VTE Prophylaxis Plan VTE Prophylaxis will be ordered: Yes PG Care Time/CCT Total # of Minutes Spent Total Time Spent with Patient: Total time spent is greater than 50% in coordination of care (as documented) at patient's floor/unit and/or counseling patient: Coding Level of Care Code 12912 INT INP/OBS CARE 3/75MIN Diagnoses Pulmonary embolism I26.99 Aspiration pneumonia J69.0
[2025-06-02] MEDS ORDERED: NITROGLYCERIN SL 0.4 MG/TAB TAB SL PRN (16:02)
--- NOTE | 2025-06-02 16:32 | Ultrasound Report ---
EXAMINATION: Ultrasound venous duplex upper extremity bilateral CLINICAL HISTORY: Pulmonary embolism, flaccid left arm, right arm surgery nonmobile arms. PRIORS: None TECHNIQUE: Ultrasound interrogation of the deep venous structures within the upper extremities was performed. Examination is limited due to mobility challenges. FINDINGS: The bilateral jugular, subclavian and axillary veins are patent with normal waveform and no thrombus. IMPRESSION: No sonographic evidence of deep venous thrombosis within the bilateral upper extremities. Electronically signed by Naomie Pabon 06-02-2025 4:32 PM
--- NOTE | 2025-06-02 16:32 | Ultrasound Report ---
EXAMINATION: Ultrasound venous Doppler lower extremity bilateral CLINICAL HISTORY: Pulmonary embolism, no leg complaints PRIORS: None TECHNIQUE: Ultrasound interrogation of the deep venous structures was performed with grayscale, color Doppler, compression and augmentation. FINDINGS: The bilateral common femoral, superficial femoral, saphenous, popliteal and tibial veins demonstrate normal compressibility, frequency and augmentation. IMPRESSION: No sonographic evidence of deep venous thrombosis in the bilateral lower extremities. Electronically signed by Naomie Pabon 06-02-2025 4:32 PM
[2025-06-02] MEDS ORDERED: LABETALOL HCL IV 5 MG/ML 20ML IV PRN (18:08)
[2025-06-02 19:44] LABS: Chlamydia pneumoniae PCR Not Detected (NotDetected); Coronavirus 229E PCR Not Detected (NotDetected); Coronavirus CoV-2 (COVID19)PCR Not Detected (NotDetected); Coronavirus HKU1 PCR Not Detected (NotDetected); Coronavirus NL63 PCR Not Detected (NotDetected); Coronavirus OC43PCR Not Detected (NotDetected); Human Metapneumovirus PCR Not Detected (NotDetected); Parainfluenza Virus 1 PCR Not Detected (NotDetected); Parainfluenza Virus 2 PCR Not Detected (NotDetected); Parainfluenza Virus 3 PCR Not Detected (NotDetected); Parainfluenza Virus 4 PCR Not Detected (NotDetected); Respiratory Syncytial VirusPCR Not Detected (NotDetected); Rhinovirus/Enterovirus PCR Not Detected (NotDetected)
[2025-06-02] MEDS: VALPROATE SOD 125 MG in DEXTROSE 5% 50 ML IV SCH (20:11)
[2025-06-02] MEDS: HYDROmorphone INJ 0.5 MG/0.5 ML SYR IV PRN (20:44)
[2025-06-02 21:09] LABS: ANTI-Xa, UFH(UnfractionatedHep 0.70 IU/ml (0.3-0.7)
[2025-06-02] MEDS: PIPERACILLIN/TAZOBACTAM 4.5 GM/100 ML BAG IV SCH (21:15)
[2025-06-03 06:12] LABS: Hematocrit (blood only) 30.2 % (42.0-52.0); Hemoglobin 9.7 g/dl (14.0-18.0); Mean Corpuscular Hemoglobin 28.6 pg (25.0-34.0); Mean Corpuscular Volume 89.1 fL (80.0-100.0); Platelet Count 315 K/uL (130-400); RDW Standard Deviation 56.4 fL (36.4-46.3); Red Blood Count 3.39 M/uL (4.70-6.10); White Blood Count 12.31 K/ul (4.8-10.8)
[2025-06-03 06:32] LABS: ANTI-Xa, UFH(UnfractionatedHep 0.61 IU/ml (0.3-0.7)
[2025-06-03 06:34] LABS: Anion Gap 7.0 (3-11); Blood Urea Nitrogen 16.0 mg/dl (6-23); Calcium 8.4 mg/dl (8.6-10.3); Carbon Dioxide 25.0 mmol/L (21-32); Chloride 108.0 mmol/L (98-107); Creatinine Clr Calc Pharmacy 74.0 ml/min; Glucose 108.0 mg/dl (70-99(Fasting)); Magnesium 1.7 mg/dl (1.7-2.4); Potassium 3.4 mmol/L (3.5-5.1); Sodium 140.0 mmol/L (136-145)
[2025-06-03 07:01] LABS: Acanthocytes 1+; Immature Granulocytes # (auto) 0.03 K/uL (0.01-0.20); Immature Granulocytes % (auto) 0.2 %; Polychromasia 1+; Smudge Cells Present
[2025-06-03] MEDS ORDERED: HYDROmorphone INJ 0.5 MG/0.5 ML SYR IV PRN (08:37)
--- NOTE | 2025-06-03 08:43 | Hospitalist Progress Note ---
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 - cont zosyn - MRSA swab neg - sputum culture pending collection - biofire neg #Stroke #CAD #HTN #HLD - hold PO meds - valproate IV bid - prn labetalol #Right shoulder surgery - surgery on 05/16/25 - ortho recs appreciated - start tylenol 1g IV q8h scheduled, dilaudid 0.25-0.5mg IV q4h for mod-severe pain - site c/d/i - cont ROM exercises - will request PT / OT (especially for ROM exercises) #CLL - outpatient follow up with Heme/Onc #Electrolytes - hypomagnesemia / hypokalemia - replete and monitor #Urinary retention - pt reports that he had two attempts of voiding trial at [facility] that were unsuccessful. they were planning try again on 06/04. He would like to have the rodriguez removed today if possible - unfortunately, given NPO status, can't utilize flomax but will attempt voiding trial today. if rodriguez needs to be reinserted, then will need outpatient urology evaluation. once pt is cleared for oral intake, start flomax #Code status: full code, though does not want to be prolonged. pt's son and daughter were at beside during this convo Admission and Anticipated Discharge Date Admission Date: June 02, 2025 Subjective No acute events. pt states that he slept well overnight. This morning, he is complaining of right shoulder soreness. He also inquiring about when he can eat. He is denying cough. Review of Systems Review of Systems: Comprehensive ROS completed and is otherwise negative. Physical Exam Physical Exam: Gen: no acute distress, lying in bed comfortable, speaks very fast HEENT: NC/AT, MMM Lungs: nonlabored breathing, breath sounds now clear CVS: s1s2nl, regular Abd: nl bowel sounds, soft, NT / ND : + rodriguez Ext: no edema Neuro: AAOx3, pt not able to move left side though sensation is intact Psych: pleasant, calm, cooperative Results & Data Results & Data Vital Signs (Past 12 Hours) Vital Signs Temp Pulse Pulse Resp BP BP Pulse Ox 06/03/25 08:00 36.3 C L 77 18 106/63 95 06/03/25 03:09 36.4 C L 77 16 95/63 L 95 06/03/25 00:18 82 06/02/25 22:37 36.5 C 79 22 95/65 L 95 O2 Del Method 06/03/25 08:00 Room Air 06/03/25 03:09 Room Air 06/03/25 00:18 06/02/25 22:37 Room Air PG Care Time/CCT Total # of Minutes Spent Total Time Spent with Patient: Total time spent is greater than 50% in coordination of care (as documented) at patient's floor/unit and/or counseling patient: Coding Level of Care Code 48334 SUB INP/OBS CARE 3/50MIN Diagnoses Pulmonary embolism I26.99 Aspiration pneumonia J69.0
[2025-06-03] MEDS: ACETAMINOPHEN 1,000 MG/100 ML VIAL IV SCH (09:06)
[2025-06-03] MEDS: HYDROmorphone INJ 0.5 MG/0.5 ML SYR IV PRN (09:07)
[2025-06-03] MEDS: POTASSIUM CHLORIDE / WTR 10 MEQ/100 ML PLCT IV SCH (09:30)
--- NOTE | 2025-06-03 09:42 | Gastrointestinal Consultation ---
Date of Consultation June 03, 2025 Assessment & Plan (1) Dysphagia: Plan Patient seems to have had issues with oropharyngeal dysphagia and repots good benefit with seeing speech in the past. His dysphagia seems to be related to eating quickly or too large of a bite. - I advised the patient to take their time eating, taking small bites, chewing foods well, and using plenty of fluids with meals. - would await speech path evaluation and recommendations. - would defer EGD at this time in the setting of new Pulmonary emboli. patient was agreeable to this. - can start protonix 40mg daily. - Further recommendations to come with Supervising GI provider on medical rounds. Please see co-signature comments. Supervising Physician Co-Signing Physician Notes I agree with the advanced practitioner's documentation above regarding review of case, evaluation, and assessment and plan unless outlined below. This was a shared visit in which I was present during all aspects of the case including evaluation, discussion of case, review of data and test results, interpretation of data and test results, complex medical decision making, coordination of care, communication with patient and family and direction of ancillary services. From a symptomatic perspective the patient presented with acute episode of choking status post Heimlich maneuver. He does not have a long history of dysphagia or choking which would be suggestive of a motility disorder. In light of acute issues including pulmonary embolus upper endoscopy is not recommended at this time as it is suspected to be a low yield exam. Thank you for the courtesy of the consultation. History of Present Illness Reason for Consultation: dilated esophagus, aspiration Requesting Physician: Ailin Yancey MD Attending Physician: Ailin Yancey MD History of Present Illness Patient is a 69 year old male with a past medical history of HTN, HLD, stroke (2018) with residual left hemiparesis, CAD c/b multiple MIs s/p cardiac stents, GERD, BPH, anxiety / depression, CLL recent right shoulder rotator cuff surgery who was sent to ED on 06/02 from [facility] for the evaluation of low blood pressure, tachycardia, and feelings of being lightheaded. ED workup revealed d- dimer of 4290, prompting CTA chest, which revealed RML segmental pulmonary embolus. Aspiration pneumonitis in the setting of fluid-filled moderately distended esophagus. GI has been asked to see him for the esophageal findings. From a swallowing standpoint, he reportedly has choking episodes if he eats too fast or takes larger bites. he tells me that it is not much of an issue and he has only had two episodes recently of this related to pizza and sanchez. He has reported right sided oropharyngeal weakness. He tells me that speech has evaluated and worked with him in the past which he has found helpful. The rest of the GI ros are unremarkable. no pain in the chest or shortness of breath. 06/03/25 wbc 12.31, hgb 9.7, hct 30.2, plts 315, Na 140, K 3.4, BUN 16, Cr .83, glucose 108. Allergies Allergy/AdvReac Type Severity Reaction Status Date / Time No Known Allergies Allergy Verified 06/02/25 17:04 Home Medications Medication Instructions Recorded Confirmed Type atorvastatin 80 mg tablet 80 mg PO QPM 12/25/24 06/02/25 History calcium carbonate (Tums) 300 mg PO BID PRN Dyspepsia 12/25/24 06/02/25 History mirtazapine 15 mg tablet 15 mg PO HS 12/25/24 06/02/25 History mmglcwmh-yw-pkjae 300 mcg-K 60 1 tab PO QAM 12/25/24 06/02/25 History mcg-lycop 600 mcg-lutein 300 mcg tablet (Men 50 Plus Multivitamin) valsartan 160 mg tablet 160 mg PO QAM 12/25/24 06/02/25 History vitamin B comp and C no.3 15 mg-10 1 cap PO QAM 12/25/24 06/02/25 History mg-50 mg-5 mg-300 mg capsule (B Complex Plus Vitamin C) amitriptyline 100 mg tablet 100 mg PO HS #90 tabs 05/05/25 06/02/25 Rx oxycodone 5 mg tablet 5 mg PO Q6H PRN pain #30 tabs 05/17/25 06/02/25 Rx acetaminophen 325 mg tablet 650 mg PO Q6H PRN Fever/Pain 06/02/25 06/02/25 History (Tylenol) aspirin 81 mg tablet,delayed 81 mg PO QAM 06/02/25 06/02/25 History release bisacodyl 10 mg rectal suppository 10 mg [place] DAILY PRN Constipation 06/02/25 06/02/25 History (Dulcolax (bisacodyl)) clopidogrel 75 mg tablet 75 mg PO QAM 06/02/25 06/02/25 History diclofenac sodium 1 % topical gel 2 g topical Q6H PRN Joint pain 06/02/25 06/02/25 History divalproex 125 mg tablet,delayed 125 mg PO BID 06/02/25 06/02/25 History release ergocalciferol (vitamin D2) 1,250 1,250 mcg PO WK 06/02/25 06/02/25 History mcg (50,000 unit) capsule ferrous gluconate 324 mg (38 mg 324 mg PO 3XWK 06/02/25 06/02/25 History iron) tablet magnesium hydroxide 400 mg/5 mL 2,400 mg PO DAILY PRN Constipation 06/02/25 06/02/25 History oral suspension (Milk of Magnesia) pantoprazole 40 mg tablet,delayed 40 mg PO DAILYBB 06/02/25 06/02/25 History release sodium phosphates 19 gram-7 118 ml [place] DAILY PRN Constipation 06/02/25 06/02/25 History gram/118 mL enema (Fleet Enema) tamsulosin 0.4 mg capsule (Flomax) 0.4 mg PO HS 06/02/25 06/02/25 History Patient History Medical History CAD (coronary artery disease) s/p cardiac stents: 2012 (JHOAN to right posterolateral branch) + 2017 (JHOAN to RCA > staged PCI Cx) HTN (hypertension) Atherogenic dyslipidemia Left hemiplegia Cognitive deficit following cerebrovascular accident (CVA) Anemia Chronic History of atrial fibrillation Follows with [facility] cardio Chronic lymphocytic leukemia Follows with heme/onc (CCP) Dysphagia Chronic, ongoing issue since 2018 CVA Difficulty w/large food Follows with speech therapy History of CVA (cerebrovascular accident) 2018 (per cardio records) > left sided hemiparesis affecting left side, uses wheel chair Taking Plavix Follows with [facility] neurology GERD (gastroesophageal reflux disease) Hx of myocardial infarction Multiple MIs (most recent 2016) Surgical History Implantable loop recorder present Placed for a. fib, "non-fuctioning" Hx of colonoscopy Hx of cardiac catheterization 2012 (JHOAN to right posterolateral branch) + 2017 (JHOAN to RCA > staged PCI Cx) History of right hip replacement S/P vasectomy S/P wisdom tooth extraction Family History Mother Colorectal cancer Diabetes Brother No problems noted. Denies family history of Ovarian cancer Prostate cancer Myocardial infarction Breast cancer Lung cancer Social History Smoking Status: Former smoker Age Started Using Tobacco: 6; Age Quit Using Tobacco: 49; packs per day: 1; Second Hand Exposure: Yes (hx); Do You Dip or Chew Tobacco: No; Hx Alcohol Use: No Hx Substance Use: No Preferred Language: Kenyan Communication Ability: Effective Communication Ability Comment: mild cognitive deficit Visual Impairment: No Limitations Hearing Ability: Hard of Hearing Master Control Technician Required: No Beliefs That Will Affect Care: None marital status: Current Living Situation: Alone current occupational status: retired Feels Safe at Home: Yes Childhood Exposure to Second-Hand Smoke: Yes Diet: regular caffeine: Yes during the past year weight has: remained stable Dental Care, Regularly: Yes Physical Activity Frequency: Does not Exercise Seatbelt Use: always Sunscreen Use: No Assistive Devices: Glasses, Scooter/Electric Scooter, Walker and Other Review of Systems Review of Systems: All systems reviewed & are unremarkable except as noted in HPI & below Physical Exam Constitutional: WD/WN, vitals as above Respiratory: normal respiratory effort, lungs clear to auscultation Cardiovascular: Rate/Rhythm: regular rate and regular rhythm Gastrointestinal (Abdomen): normal bowel sounds, soft, nontender, no hepatosplenomegaly Psychiatric: Orientation: alert and oriented x 3 Affect: euthymic affect Results & Data Vital Signs (Past 12 Hours) Vital Signs Temp Pulse Pulse Resp BP BP Pulse Ox 06/03/25 08:00 97.3 F L 77 18 106/63 95 06/03/25 03:09 97.5 F L 77 16 95/63 L 95 06/03/25 00:18 82 06/02/25 22:37 97.7 F 79 22 95/65 L 95 O2 Del Method 06/03/25 08:00 Room Air 06/03/25 03:09 Room Air 06/03/25 00:18 06/02/25 22:37 Room Air Coding Level of Care Code 87905 INT INP/OBS CARE 2/55MIN Diagnoses Dysphagia R13.10
[2025-06-03] MEDS: MAGNESIUM SULFATE / D5W 1 GM/100 ML BAG IV SCH (10:37)
--- NOTE | 2025-06-03 12:54 | XCELERA ---
[id number]
[2025-06-04] MEDS ORDERED: ONDANSETRON INJ 2 MG/ML 2 ML VIAL IV PRN (01:42)
[2025-06-04] MEDS: ALUMINUM/MAGNESIUM SUSP 30 ML UDC PO PRN (01:58)
[2025-06-04 07:26] LABS: Hematocrit (blood only) 30.9 % (42.0-52.0); Hemoglobin 9.9 g/dl (14.0-18.0); Mean Corpuscular Hemoglobin 29.1 pg (25.0-34.0); Mean Corpuscular Volume 90.9 fL (80.0-100.0); Platelet Count 343 K/uL (130-400); RDW Standard Deviation 56.8 fL (36.4-46.3); Red Blood Count 3.40 M/uL (4.70-6.10); White Blood Count 13.00 K/ul (4.8-10.8)
--- NOTE | 2025-06-04 07:32 | Hospitalist Progress Note ---
Date of Service June 04, 2025 Assessment & Plan (1) Pulmonary embolism: (2) Aspiration pneumonitis: Plan in summary this is a 69-year-old male who was admitted for pulmonary emboli and initial concern for aspiration pneumonia patient initially presented with shortness of breath and orthostatic symptoms; CTA chest did reveal multiple subsegmental pulmonary emboli; there is no clear source based on upper and lower extremity Dopplers obtained at the time of admission -Vital signs every shift -Start apixaban 10 mg p.o. every 12 hours for 5 days, then 5 mg p.o. every 12 hours thereafter -Stop heparin gtt patient was initially presented with concern for possible aspiration pneumonia; given the lack of associated symptoms of possible pneumonia, repeat imaging was obtained on 06/04 which does not show evidence of pneumonia, most likely consistent with aspiration pneumonitis which is now resolved with respect of the patient's urinary retention, this appears to be a subacute issue, may be consequential of his associated constipation; Marvin catheter was placed on 06/04, can be reevaluated at his care facility Start flomax 0.4 mg p.o. daily Admission and Anticipated Discharge Date Admission Date: June 02, 2025 Subjective Mr. Bergeron is a 69-year-old male whose active medical conditions include left- sided hemiplegia status post CVA, CAD, hyperlipidemia, hypertension among other chronic medical conditions who was admitted to [facility] on 06/02 after being found to have multiple pulmonary emboli. overnight, the patient multiple episodes of persistent urinary retention resulting in Marvin catheter placement; the patient further expresses difficulty with using the bedpan with her bowels. Otherwise they are feeling well and hopeful for discharge. Review of Systems Review of Systems: Remaining review of constitutional, pulmonary, cardiovascular, gastrointestinal, genitourinary, musculoskeletal, neurologic, and integumentary systems was unremarkable except for pertinent positive and negative findings noted in the HPI above. Physical Exam Physical Exam: General: Adult male in no acute distress Vital Signs: reviewed HEENT: moist mucous membranes; extraocular motions intact; pupils equally round reactive to light Pulmonary: clear to auscultation bilaterally; symmetric chest wall rise Cardiovascular: regular rate and rhythm; no murmurs, rubs, or gallops; S1 and S2 normal; bilateral radial and posterior tibial pulse 2+ Neurologic: CN II-XII grossly intact; chronic left upper and lower extremity weakness, not changed from previous documentation in comparison Results & Data Results & Data Vital Signs (Past 12 Hours) Vital Signs Temp Pulse Pulse Resp BP BP Pulse Ox 06/04/25 03:00 36.5 C 80 17 113/73 93 06/03/25 23:59 36.5 C 78 18 97/67 L 95 06/03/25 23:26 69 06/03/25 20:30 36.4 C L 76 18 96/60 L 94 O2 Del Method 06/04/25 03:00 Room Air 06/03/25 23:59 Room Air 06/03/25 23:26 06/03/25 20:30 Room Air Laboratory Results reviewed; procalcitonin 0.8, likely inflammatory reaction from other chronic medical conditions and acute pulmonary emboli Diagnostic Findings chest x-ray is without evidence of infection, significantly improved from initial presenting imaging PG Care Time/CCT Total # of Minutes Spent Total Time Spent with Patient: Total time spent is greater than 50% in coordination of care (as documented) at patient's floor/unit and/or counseling patient: Coding Level of Care Code 81728 SUB INP/OBS CARE 3/50MIN Diagnoses Multiple subsegmental pulmonary emboli without acute cor pulmonale I26.94 Pulmonary embolism type: multiple subsegmental (without acute cor pulmonale) Aspiration pneumonitis J69.0 (1) Pulmonary embolism Pulmonary embolism type: multiple subsegmental (without acute cor pulmonale) Qualified Code(s): I26.94 - Multiple subsegmental thrombotic pulmonary emboli without acute cor pulmonale
[2025-06-04 07:49] LABS: Anion Gap 7.0 (3-11); Blood Urea Nitrogen 17.0 mg/dl (6-23); Calcium 8.3 mg/dl (8.6-10.3); Carbon Dioxide 26.0 mmol/L (21-32); Chloride 107.0 mmol/L (98-107); Creatinine Clr Calc Pharmacy 72.5 ml/min; Glucose 105.0 mg/dl (70-99(Fasting)); Magnesium 2.2 mg/dl (1.7-2.4); Potassium 3.9 mmol/L (3.5-5.1); Sodium 140.0 mmol/L (136-145)
[2025-06-04 07:53] LABS: ANTI-Xa, UFH(UnfractionatedHep 0.51 IU/ml (0.3-0.7)
[2025-06-04] MEDS: APIXABAN 5 MG TABLET PO SCH (09:05)
--- NOTE | 2025-06-04 14:02 | XRay Report ---
TWO VIEW CHEST CLINICAL HISTORY: Aspiration. FINDINGS: AP and lateral chest radiographs are compared to chest x-ray and chest CT dated 06/02/2025. The AP view is degraded by patient rotation. The heart is enlarged noting atherosclerotic calcificati on of the thoracic aorta. The pulmonary vasculature is noncongested. Chronic interstitial thickening is similar to previous. There is mild bibasilar scarring/atelectasis. No airspace consolidation or pl eural effusion is identified. There is no pneumothorax. The skeletal structures are osteopenic. A chr onic/healed bilateral rib fractures. A right shoulder arthroplasty is in place. Arthritic change is s een in the left shoulder. IMPRESSION: Cardiomegaly with no acute cardiopulmonary abnormality identified. ACT 112: Negative or not required by law. Electronically signed by: Mina Schaefer M.D. 06/04/2025 2:00 PM
--- NOTE | 2025-06-04 14:48 | Fluoroscopy Report ---
VIDEO SWALLOW STUDY CLINICAL HISTORY: Aspiration. Fluoro time: 55 seconds. Ka,r: 2.76 mGy FINDINGS: Fluoroscopic guidance is provided to the Department of speech pathology in performing a vid eo swallow study. The patient consumed barium impregnated pudding, cracker with paste, nectar-thick l iquids, and thin barium while the swallowing mechanism was observed in real-time. There is deep phary ngeal penetration seen with thin barium. No aspiration was seen with any of the sampled textures. IMPRESSION: 1. Pharyngeal penetration was seen with thin barium. 2. No aspiration was seen with any of the sampled textures. 3. See dedicated speech pathology report for detailed findings and recommendations. Dictated: 06/04/2025 2:00 PM Transcribed: 06/04/2025 2:05 PM Sal [id number] Electronically signed by: Mina Schaefer M.D. 06/04/2025 2:46 PM
[2025-06-04] MEDS: TAMSULOSIN HCL 0.4 MG CAP PO SCH (15:44)
[2025-06-04] MEDS: DICLOFENAC SOD 1% GEL 100 GM TUBE EXT SCH (22:26)
[2025-06-04] MEDS: MELATONIN 3 MG TAB PO PRN (22:27)
[2025-06-04] MEDS: ACETAMINOPHEN 500 MG TAB PO PRN (22:27)
[2025-06-05 08:29] VITALS: RESP 18
[2025-06-05 11:42] VITALS: BP 98/64; PULSE 95; TEMP 97.9; O2SAT 94
--- NOTE | 2025-06-05 17:46 | Discharge Summary ---
Discharge Summary Date of Service June 05, 2025 Principal Dx & Hospital Course #1 = Principal Diagnosis (1) Pulmonary embolism: (2) Aspiration pneumonitis: Plan In summary this is a 69-year-old male who was admitted for pulmonary emboli and initial concern for aspiration pneumonia Patient initially presented with shortness of breath and orthostatic symptoms; CTA chest did reveal multiple subsegmental pulmonary emboli; there is no clear source based on upper and lower extremity Dopplers obtained at the time of admission -Vital signs every shift -Continue apixaban 10 mg p.o. every 12 hours for 5 days, then 5 mg p.o. every 12 hours thereafter Patient was initially presented with concern for possible aspiration pneumonia; given the lack of associated symptoms of possible pneumonia, repeat imaging was obtained on 06/04 which does not show evidence of pneumonia, most likely consistent with aspiration pneumonitis which is now resolved With respect of the patient's urinary retention, this appears to be a subacute issue, may be consequential of his associated constipation; Marvin catheter was placed on 06/04, can be reevaluated at his care facility Continue flomax 0.4 mg p.o. daily - Maintain Marvin with void trial in next 24 to 48 hours Admission HPI Per Admitting Provider 69 yo M with PMHx of HTN, HLD, stroke (2018) with residual left hemiparesis, CAD c/b multiple MIs s/p cardiac stents, GERD, BPH, anxiety / depression, CLL recent right shoulder rotator cuff surgery was sent to ED from [facility] for the evaluation of low blood pressure and high heart rate. He also noted that he felt lightheaded when he woke up in the morning. He denied chest pain, palpitations, dyspnea, blurry vision. Currently he does feel better. From swallowing / GI standpoint, he has has choking episodes if he eats too fast or takes larger bites. He has right sided oropharyngeal weakness. He denied feelings of food or liquid getting stuck in the chest. ED workup revealed d-dimer of 4290, prompting CTA chest, which revealed RML segmental pulmonary embolus. Aspiration pneumonitis in the setting of fluid- filled moderately distended esophagus. Discharge Exam General: Adult male in no acute distress Vital Signs: reviewed HEENT: moist mucous membranes; extraocular motions intact; pupils equally round reactive to light Pulmonary: clear to auscultation bilaterally; symmetric chest wall rise Cardiovascular: regular rate and rhythm; no murmurs, rubs, or gallops; S1 and S2 normal; bilateral radial and posterior tibial pulse 2+ Neurologic: CN II-XII grossly intact; chronic left upper and lower extremity weakness, not changed from previous documentation in comparison Discharge Plan Discharge Items Patient Disposition: Transfer [facility] Reason For Visit: PULMONARY EMBOLISM Discharge Diagnosis: Pulmonary embolism Condition on Discharge: Good Activity: As commented below Lifting Comment: Continue to follow post-operative instructions provided by your surgeon Non-emergency contact: Primary Care Provider Call non-emergency contact if: you have any medication questions and your symptoms worsen Follow-up/Referrals: Santos Ríos DO [Primary Care Provider] - Diet: Heart Healthy Fluids: 1800ml (7 cups) Diet Texture: Easy to Chew Diet Comment: please follow speech-language pathology recommendations Addtl Attending Provider Instructions: in summary you were admitted to [facility] due to multiple subsegmental pulmonary emboli complicated by aspiration pneumonitis. With respect to her initial presenting complaints of shortness of breath, orthostatic symptoms it was found that you have multiple subsegmental pulmonary emboli without a clear defined source however we will continue apixaban 10 mg p.o. every 12 hours for total 7-day course, followed by 5 mg p.o. every 12 hours thereafter. The full course of anticoagulation is to be determined with your primary care physician. Anticipate this will be a minimum of 3 months. There was initial concern of a potential aspiration pneumonia however based on her clinical course and serial imaging it is more consistent with a diagnosis of aspiration pneumonitis, not requiring further antibiotics. With regard to the concern of recurrent episodes of aspiration speech-language pathology recommends an easy to chew diet IDDSI 7 with thin liquids; consider starting each meal with a warm, decaffeinated beverage; recommend walking after meals in order to facilitate digestion; avoid eating 30 to 60 minutes before bed. furthermore, aspiration and reflux precautions include alternating solids and liquids to facilitate swallowing, head of bed at 30 degrees at all times except when eating, at which point patient should be fully upright. Pending Studies at Discharge: No Stand-Alone Forms: [facility] Skilled Items Patient informed of condition?: Yes DNR: No Discharge Level of Care: Skilled Communicable Disease: No Discharge Prognosis: Improving Lines: None Urinary Catheter: Yes Medications and DC Order Prescriptions: New Eliquis 5 mg Tablet 10 mg PO BID 4 Days Qty: 16 0RF Eliquis 5 mg Tablet 5 mg PO BID 30 Days Qty: 60 0RF Rx Instructions: Start 06/10/2025 Continued amitriptyline 100 mg tablet 100 mg PO HS Qty: 90 5RF atorvastatin 80 mg tablet 80 mg PO QPM valsartan 160 mg tablet 160 mg PO QAM mirtazapine 15 mg tablet 15 mg PO HS Tums 300 mg (750 mg) tablet,chewable 300 mg PO BID PRN (Reason: Dyspepsia) B Complex Plus Vitamin C [id number] mg capsule 1 cap PO QAM Rx Instructions: give with food (meal/snack) Men 50 Plus Multivitamin [id number] mcg tablet 1 tab PO QAM oxycodone 5 mg tablet 5 mg PO Q6H PRN (Reason: pain) Qty: 30 0RF acetaminophen [Tylenol] 325 mg Tablet 650 mg PO Q6H PRN (Reason: Fever/Pain) clopidogrel 75 mg tablet 75 mg PO QAM tamsulosin [Flomax] 0.4 mg Capsule 0.4 mg PO HS bisacodyl [Dulcolax (bisacodyl)] 10 mg Suppository 10 mg NC DAILY PRN (Reason: Constipation) Rx Instructions: Give on day 3 of no BM on 3-11 shift. Only give if no BM after MOM pantoprazole 40 mg tablet,delayed release (DR/EC) 40 mg PO DAILYBB divalproex 125 mg Tablet,Delayed Release (Dr/Ec) 125 mg PO BID Fleet Enema 19-7 gram/118 mL Enema 118 ml NC DAILY PRN (Reason: Constipation) Rx Instructions: If no BM after dulcolax administer fleets on 7-3 shift on day 4 ergocalciferol (vitamin D2) 1,250 mcg (50,000 unit) Capsule 1,250 mcg PO WK Rx Instructions: Monday ferrous gluconate 324 mg (38 mg iron) Tablet 324 mg PO 3XWK Rx Instructions: Mon/Mon/Mon diclofenac sodium 1 % Gel 2 g TOPICAL Q6H PRN (Reason: Joint pain) Rx Instructions: apply to single elbow, wrist or hand; for hand includes palm/fingers/back of hand Held aspirin 81 mg Tablet,Delayed Release (Dr/Ec) 81 mg PO QAM Hold Instructions: Resume on 08/07/25. May resume after discontinuation of Eliquis; if DOAC therapy is needed indefinitely, then would recommend against resuming ASA. Discontinued magnesium hydroxide [Milk of Magnesia] 400 mg/5 mL Suspension 2,400 mg PO DAILY PRN (Reason: Constipation) Rx Instructions: Give if no BM for 3 days Discharge Orders: Discharge Order (Routine); Ordered 06/05/25 Ordered By: Michael Tejeda/Other Patient Handouts: Pulmonary Embolism, Dysphagia Aspiration, Dysphagia Diet- Managing Drinks, Dysphagia Diet- Managing Foods, Dysphagia Tongue Exercises Admission Data Admit Date/Time: 06/02/25 14:57 Attending Provider: Michael Rebolledo Admit Provider: Ailin Yancey Primary Care Provider: Santos Ríos Other Providers: Seb Madrigal; Santos Sorensen; [place] Other Interventions: Discharge Summary Assessment (RN) Last Done: 06/05/25 11:02 Hospital Stay Data Consultations 06/02/25 14:13 ED Decision to Admit Stat 06/02/25 14:57 Consult Gastroenterology Stat Diagnostic Imagining Performed 06/02/25 12:50 CT angio chest PE protocol Stat 06/02/25 14:57 US venous duplex arm [US venous doppler UE BI] Routine US venous duplex leg [US venous doppler LE BI] Routine 06/04/25 13:00 FL video swallow Routine Pending Results Patient Have Any Pending Studies at Discharge: No Discharge Instructions Given to Patient (Per Discharging Provider) in summary you were admitted to [facility] due to multiple subsegmental pulmonary emboli complicated by aspiration pneumonitis. With respect to her initial presenting complaints of shortness of breath, orthostatic symptoms it was found that you have multiple subsegmental pulmonary emboli without a clear defined source however we will continue apixaban 10 mg p.o. every 12 hours for total 7-day course, followed by 5 mg p.o. every 12 hours thereafter. The full course of anticoagulation is to be determined with your primary care physician. Anticipate this will be a minimum of 3 months. There was initial concern of a potential aspiration pneumonia however based on her clinical course and serial imaging it is more consistent with a diagnosis of aspiration pneumonitis, not requiring further antibiotics. With regard to the concern of recurrent episodes of aspiration speech-language pathology recommends an easy to chew diet IDDSI 7 with thin liquids; consider starting each meal with a warm, decaffeinated beverage; recommend walking after meals in order to facilitate digestion; avoid eating 30 to 60 minutes before bed. furthermore, aspiration and reflux precautions include alternating solids and liquids to facilitate swallowing, head of bed at 30 degrees at all times except when eating, at which point patient should be fully upright. Total Time Total Time Spent Total Time Spent (In Minutes): 45 Coding Level of Care Code 54764 INP/OBS DISCH >30 MIN Diagnoses Multiple subsegmental pulmonary emboli without acute cor pulmonale I26.94 Pulmonary embolism type: multiple subsegmental (without acute cor pulmonale) Aspiration pneumonitis J69.0
--- NOTE | 2025-06-05 21:18 | Electrocardiogram Report ---
Test Reason : Blood Pressure : */* mmHG Vent. Rate : 120 BPM Atrial Rate : * BPM P-R Int : 184 ms QRS Dur : 104 ms QT Int : 336 ms P-R-T Axes : * -8 -50 degrees QTcB Int : 475 ms Sinus tachycardia Minimal voltage criteria for LVH, may be normal variant ( R in aVL ) Inferior infarct (cited on or before 14-Jan-2025) Abnormal ECG When compared with ECG of 14-Jan-2025 12:58, Vent. rate has increased by [address] now depressed in Lateral leads T wave inversion now evident in Lateral leads Confirmed by Daniel Coles ([id number]) on 06/05/2025 9:17:44 PM Referred By: REFERRED SELF Confirmed By: Daniel Coles
[2025-06-10] MEDS ORDERED: APIXABAN 5 MG TABLET PO SCH (09:00)
== END 2025-06-05 14:29 | DRG 177 ==
LOC: ED 11:22 → SUATTDRO 14:57 → 4W 14:57